=== PATIENT | male | born 1955 | race Caucasian/White ===

== ENCOUNTER 2016-07-19 05:54 | Day surgery (SDC) | payer OTHER ==
[~2016-07-19] VITALS: Ht 185.4 cm; Wt 85.2 kg
[2016-07-19] MEDS ORDERED: NORVASC 5MG5 MG/TAB PO (06:19)
[2016-07-19] MEDS ORDERED: MULTIPLE VITAMI1 CAP PO (06:20)
[2016-07-19] MEDS ORDERED: LOTREL 5/10MG C1 CAP PO (06:22)
[2016-07-19] MEDS ORDERED: MELATONIN5 M1 SL (06:22)
[2016-07-19] MEDS ORDERED: NATURAL POTASS595 MG PO (06:23)
[2016-07-19 06:45] VITALS: BP 134/69; PULSE 79; TEMP 97.9
[2016-07-19] MEDS ORDERED: NORCO 325 MG-51 TAB PO (09:59)
[2016-07-19] MEDS ORDERED: AMOXICILLIN 8751 TAB PO (09:59)
[2016-07-19] MEDS ORDERED: ZOFRAN ODT4 MG PO (10:00)
[2016-07-19 10:30] VITALS: BP 127/70; PULSE 69; TEMP 98.1
[2016-07-19 10:45] VITALS: BP 128/72; PULSE 78
[2016-07-19 11:00] VITALS: BP 125/70; PULSE 66
[2016-07-19 11:15] VITALS: BP 111/66; PULSE 72
== END 2016-07-19 13:37 | disposition home or self-care (01) ==
LOC: SDCO 05:54
DX: K81.0 Acute cholecystitis (principal); I10 Essential (primary) hypertension; E78.5 Hyperlipidemia, unspecified
CPT/HCPCS: J0694; J1100; J1885; J2270; J2405; J2704; J2710; J3010; J7120; Q9967

== ENCOUNTER 2020-03-28 05:33 | Day surgery (SDC) | payer BC ==
[2020-03-28] VITALS (11 sets, daily range): BP systolic 131–166; BP diastolic 68–92; PULSE 72–98; TEMP 97.3–98.6
[~2020-03-28] VITALS: Ht 185.4 cm; Wt 89.1 kg
[~2020-03-28 05:33] MED LIST: AMOXICILLIN 8751 TAB PO; LOTREL 5/10MG C1 CAP PO; MELATONIN5 M1 SL; NATURAL POTASS595 MG PO; NORCO 325 MG-51 TAB PO; NORVASC 5MG5 MG/TAB PO; ONE-A-DAY ESSE1 EACH PO; ZOFRAN ODT4 MG PO
[2020-03-28] MEDS ORDERED: TYLENOL 500MG500 MG PO (05:59)
[2020-03-28] MEDS ORDERED: MOTRIN 200200 MG/TAB PO (05:59)
[2020-03-28] MEDS ORDERED: PYRIDIUM 100MG100 MG PO (07:25)
--- NOTE | 2020-03-28 09:55 | NUR ---
PATIENT ADMITED INTO ROOM 323 POST OP TURP. VICENTE TO DD WITH CBI INFUSING AT MOD RATE. URINE IS LIGHT PINK, NO CLOTS. PATIENT DENIES PAIN OR COMPLAINTS. NO C/O N/V. IV FLUIDS INFUSING VIA PUMP INTO IV. HEAD TO TOE ASSESSMENT WNL. SCD'S TO BLE. ORIENTED TO ROOM. CALL LIGHT IN REACH.
[2020-03-29 03:44] VITALS: BP 142/85; PULSE 73; TEMP 98.6
--- NOTE | 2020-03-29 05:34 | NUR ---
Patient has had an uneventful night. CBI has been running at a moderate rate throughout the night and urine is currently dark pink with no clots. Patient has no complained of any pain or discomfort tonight. Approx 10 ml of bloody urine did leak into the BSC when patient was straining to have a bowel movement. Urine leakage ceased once patient was back in bed. Will continue to monitor.
[2020-03-29 09:12] VITALS: BP 155/81; PULSE 81; TEMP 98.5
--- NOTE | 2020-03-29 09:30 | NUR ---
Patient resting in bed. Tolerated breakfast, Iv to Int. Young Cbi slowed. [place] tinged output. Patient looking forward to young removal and discharge home. we did discussed the prime & pull process. Will await the doctor to round.
[2020-03-29 11:04] VITALS: BP 154/85; PULSE 77; TEMP 98.2
--- NOTE | 2020-03-29 13:35 | NUR ---
Patient ready for discharge. has rounded & orders obtained. Patient tolerated young prime & pull, he voided a total of 700ml of pink urine without difficulty. Few clots noted. He denies burning, but does have frequency. He we reviewed all discharge paperwork. He verbalized understanding of diet & activity restrictions. He will have follow up appt on tuesday. Home meds list discussed & last dose taken. His taking him home with all belongings. He denies questions or concerns.
== END 2020-03-29 13:38 | disposition home or self-care (01) ==
LOC: SDCO 05:33 → SURG 09:55 → SDCO 03-29 13:38
DX: C67.6 Malignant neoplasm of ureteric orifice (principal); N43.41 Spermatocele of epididymis, single; N41.1 Chronic prostatitis; E78.5 Hyperlipidemia, unspecified; I10 Essential (primary) hypertension; G47.00 Insomnia, unspecified; E11.9 Type 2 diabetes mellitus without complications; Z90.49 Acquired absence of other specified parts of digestive tract; F17.210 Nicotine dependence, cigarettes, uncomplicated
CPT/HCPCS: OP; C1769; C2617; J0360; J1100; J1170; J1885; J2405; J2704; J3010; J3480; J7120; Q9967

== ENCOUNTER → 2020-04-29 | Outpatient (CLI) | payer BC ==
[~2020-04-29] MED LIST changes: +MOTRIN 200200 MG/TAB PO; +PYRIDIUM 100MG100 MG PO; +TYLENOL 500MG500 MG PO
== END ==
LOC: COL.VAS 13:14
DX: Z01.818 Encounter for other preprocedural examination (principal); C67.6 Malignant neoplasm of ureteric orifice; I08.1 Rheumatic disorders of both mitral and tricuspid valves; I77.819 Aortic ectasia, unspecified site

== ENCOUNTER 2020-05-02 05:31 | Day surgery (SDC) | payer BC ==
[~2020-05-02] VITALS: Ht 185.4 cm; Wt 92.4 kg
[2020-05-02 05:50] VITALS: BP 130/78; PULSE 83; TEMP 98.1
[2020-05-02 08:36] VITALS: BP 124/72; PULSE 82; TEMP 97.8
--- NOTE | 2020-05-02 08:36 | NUR ---
The patient arrived back to [place] 7 from the operating room at this time. The patient appears alert and oriented and denies any pain or nausea at this time. The patient requests to try some water at this time. Post operative vital signs were started at this time. Incision is without redness or edema and closed with surgical glue. Call light is within reach. Will continue to monitor the patient.
[2020-05-02] MEDS ORDERED: MOTRIN 600600 MG/TAB PO (08:41)
[2020-05-02] MEDS ORDERED: NORCO 325 MG-51 TAB PO (08:41)
[2020-05-02 08:51] VITALS: BP 139/83; PULSE 83
--- NOTE | 2020-05-02 08:51 | NUR ---
The patient appeared to tolerate the water well and requests more at this time. The patient's was notified that he is done with surgery and will be ready for discharge soon so she is going to drive here from [place].
--- NOTE | 2020-05-02 09:03 | NUR ---
Discharge instructions were reviewed with the patient at this time. He verbalized understanding and has no questions for the nurse at this time. The patient's IV to his right hand was removed and a pressure dressing was applied to the site. The nurse instructed the patient to get dressed and notify the staff when he is ready to be escorted out.
[2020-05-02 09:06] VITALS: BP 145/77; PULSE 74
--- NOTE | 2020-05-02 09:25 | NUR ---
The patient was escorted out via wheelchair to a private vehicle by DARLENE Barnes. The patient's belongings and discharge paperwork were sent with him. The patient's is present to drive him home.
== END 2020-05-02 09:25 | disposition home or self-care (01) ==
LOC: SDCO 05:31
DX: C68.8 Malignant neoplasm of overlapping sites of urinary organs (principal); E11.9 Type 2 diabetes mellitus without complications; I10 Essential (primary) hypertension; E78.5 Hyperlipidemia, unspecified; G47.00 Insomnia, unspecified; F17.210 Nicotine dependence, cigarettes, uncomplicated; Z90.49 Acquired absence of other specified parts of digestive tract; Z20.822 Contact with and (suspected) exposure to COVID-19; Z85.51 Personal history of malignant neoplasm of bladder
CPT/HCPCS: C1788; J0690; J1644; J2704; J3010; J7120

== ENCOUNTER 2020-07-04 09:33 | Inpatient (IN) | payer BC, MEDICARE ==
[~2020-07-04] VITALS: Ht 185.4 cm; Wt 90.0 kg
[~2020-07-04 09:33] MED LIST changes: +MOTRIN 600600 MG/TAB PO
[2020-07-29] VITALS (9 sets, daily range): BP systolic 113–154; BP diastolic 68–81; PULSE 67–94; TEMP 98–98.5
[2020-07-29] MEDS ORDERED: MAG-OX 400400 MG/TAB PO (06:34)
[2020-07-29] MEDS ORDERED: CLARITIN 1010 MG/TAB PO (06:35)
[2020-07-29] MEDS ORDERED: TYLENOL 325MG325 MG PO (06:35)
[2020-07-29 07:57] LABS: BASO # 0.1 (0.0-0.2); BASO % 1.2 % (0.0-2.0); EOS # 0.2 (0.0-0.7); EOS % 3.5 % (0-4.0); GRAN # 2.7 (1.4-6.5); GRAN % 53.1 % (42.2-75.2); HEMOGLOBIN 12.3 g/dl (13.5-18.0); LYMPH # 1.3 (1.2-3.4); LYMPH % 24.8 % (20.0-51.0); MEAN CELL VOLUME 112 fl (80.0-100.0); MEAN CORPUSCULAR HEMOGLOBIN 37 pg (27.0-31.0); MEAN CORPUSCULAR HGB CONC 34 g/dl (33.0-37.0); MEAN PLATELET VOLUME 9.9 fl (7.4-10.4); MONO # 0.9 (0.1-0.6); MONO % 17.2 % (1.7-9.3); PLATELET COUNT 211 K/mm3 (130-400); RED BLOOD COUNT 3.29 M/mm3 (4.20-5.60); REDCELL DISTRIBUTION WIDTH-CV 19.9 % (11.5-14.5)
[2020-07-29 07:59] LABS: CALCIUM 8.8 mg/dL (8.4-10.2); CREATININE, serum 0.58 (0.66-1.25); HEMATOCRIT 36.7 % (42.0-52.0); POTASSIUM 3.8 mmol/L (3.4-5.0)
--- NOTE | 2020-07-29 16:20 | NUR ---
Pt recently arrived to the floor from PACU. He is drowsy, but does wake easily. is present in the room. He does have complaints of pain, but states that he does not like to take any pain medication. Dressing to ABD is CDI. SURY drain to bulb suction with red drainage. abd output bag does have output as well as pt young bag. SCDs on bilaterally, SWIMMING POOL CLEANER for pain management. Pt is tolerating ice water, told him to only take sips
--- NOTE | 2020-07-29 18:30 | NUR ---
ABD drain to dependent drainage young bag. Bloody output noted. Pt is having some pain, but states he does not want to use the MARINE ENGINEER CPVEC. He is tolerating ice water at this time. Dr Donohue in to see patient. Will continue to monitor
--- NOTE | 2020-07-29 22:00 | NUR ---
Patient resting in bed. Drowsy, but wakes easily. Some complaints of pain but states it is tolerable and he does not want to push his button for pain medicine. Oxygen via simple facemask due to patient breathing through his mouth. Midline abdomen insicion clean, dry, and intact. 5 lap sites with bandaids clean, dry, and intact. Both foleys to dependent drainage with pink output. SURY drain to bulb suction with bloody output. Stents flushed with 3 ml each. VSS stable. PAtient tolerating sips of water. No other needs at this time. Call light in reach.
[2020-07-30 00:01] VITALS: BP 121/75; PULSE 75
[2020-07-30 04:13] VITALS: BP 125/77; PULSE 71; TEMP 97.5
--- NOTE | 2020-07-30 05:50 | NUR ---
Patient did not push the button for pain meds at all throughout the night. States his pain is tolerable and is taking scheduled tylenol. Foleys are having adequate output.
[2020-07-30 07:03] LABS: BASO % 0.1 % (0.0-2.0); GRAN # 11.7 (1.4-6.5); GRAN % 86.9 % (42.2-75.2); LYMPH # 0.6 (1.2-3.4); LYMPH % 4.8 % (20.0-51.0); MEAN CELL VOLUME 114 fl (80.0-100.0); MEAN CORPUSCULAR HGB CONC 33 g/dl (33.0-37.0); MEAN PLATELET VOLUME 9.8 fl (7.4-10.4); MONO % 7.8 % (1.7-9.3); PLATELET COUNT 157 K/mm3 (130-400); RED BLOOD COUNT 2.53 M/mm3 (4.20-5.60); REDCELL DISTRIBUTION WIDTH-CV 19.9 % (11.5-14.5)
[2020-07-30 07:05] LABS: HEMATOCRIT 28.9 % (42.0-52.0); HEMOGLOBIN 9.5 g/dl (13.5-18.0); MEAN CORPUSCULAR HEMOGLOBIN 38 pg (27.0-31.0)
[2020-07-30 07:16] LABS: CREATININE, serum 0.62 (0.66-1.25); POTASSIUM 4.1 mmol/L (3.4-5.0)
[2020-07-30 07:29] VITALS: BP 119/73; PULSE 74; TEMP 98.2
--- NOTE | 2020-07-30 08:00 | NUR ---
PATIENT IS ALERT AND ORIENTED X3. VSS. 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 NO COMPLAINTS OF N/V AT THIS TIME. SUPRAPUBIC CATHETER FLUSHED WITH 3ML OF NS IN EACH PORT. THERE IS A MODERATE AMOUNT OF RED TINGED URINE IN THE SUPRAPUBIC DEPENDENT DRAINAGE BAG. THERE IS ALSO AN INDWELLING CATHETER IN THE NEW NEOBLADDER THAT IS DRAINING A SMALL AMOUNT OF RED TINGED URINE THAT CONTAINS SEDEMENT. THE INCISION SITE IS CLEAN DRY AND INTACT. THERE IS A MIDLINE INCISION COVERED BY GAUZE AND HYPAFIX, WHICH IS ALSO CLEAN DRY AND INTACT. THERE ARE FIVE LAP SITES COVERED BY BANDAIDS THAT ARE CLEAN DRY AND INTACT. THERE IS A CLARK MARTINEZ DRAIN THAT IS COMPRESSED AND DRAINING 5-10ML OF BLOODY FLUID. THE PENIS IS HELD TO TENSION AND HAS A MCKENZIE KNOT. PATIENT IS ON 3.5L BY OXY MASK. MORNING MEDS ARE PASSED WITH SIPS OF WATER TO MAINTAIN THE DIET ORDER. HEAD TO TOE ASSESSSMENT COMPLETED. LUNG SOUNDS ARE CLEAR IN ALL LOBES. HEART SOUNDS REGULAR AND NORMAL. BOWEL SOUNDS ACTIVE IN ALL FOUR QUADRANTS. PULSES ARE READILY PALPABLE. PATIENT DENIES ANY PAIN OR TENDERNESS IN HIS CALVES. THERE IS NO REDNESS OR WARMTH IN THE CALVES. NO EDEMA OR PITTING NOTED. WILL CONTINUE TO MONITOR. BED LEFT IN THE LOWEST POSITION AND CALL LIGHT LEFT WITHIN REACH.
--- NOTE | 2020-07-30 08:00 | NUR ---
AGREE WITH [place] HEAD TO TOE ASSESSMENT, SEE CHARTING
--- NOTE | 2020-07-30 09:15 | NUR ---
SE met with the patient to discuss discharge plan. The patient lives in [place] with his , Kezia (ph#[phone]). He reports independence with ADLs and does not have any DME. The patient's PCP is Dr. Naseem Santos and he receives his medications from [facility] in . He reports no difficulties obtaining his meds. The patient's does not have a DPOA-HC, but he was interested in obtaining a form. SE provided. The patient plans to return home with his upon discharge. No additional needs at this time.
--- NOTE | 2020-07-30 10:00 | NUR ---
PATIENT ASSISTED WITH 1 ASSIST TO BEDSIDE CHAIR. PATIENT HAD SOME DISCOMFORT WITH MOVING BUT DENIED NEED TO USE MORPHINE CIGARETTE SELLER. PATIENT RESTING UP IN BEDSIDE CHAIR WITH CALL LIGHT IN REACH.
[2020-07-30 11:23] VITALS: BP 111/71; PULSE 83; TEMP 98.3
--- NOTE | 2020-07-30 13:15 | NUR ---
CALLED AND REPORTED SOME DRAINAGE TO MIDLINE DRESSING, SHADOWING MINIMAL AND MARKED. PATIENT C/O A LOT OF ABD PAIN AFTER GETTING BACK INTO BED. NURSING ENCOURAGED PATIENT TO USE COMMUNITY MENTAL HEALTH SOCIAL WORKER, DOSE TAKEN. ALSO GAVE SCHEDULED TYLENOL & NEURONTIN. PATIENT RESTING UP IN BED. FOLEYS X2 AND SURY EMPTIED, SEE CHARTING. AT BEDSIDE. WILL MONITOR.
--- NOTE | 2020-07-30 13:55 | NUR ---
Initial visit; Patient and his thanked Manager Land for coming in to visit and letting him know of the availability of spiritual care at our hospital. Patient was receptive to having Manager Land keep him in her prayers.
[2020-07-30 15:55] VITALS: BP 116/72; PULSE 76; TEMP 98.6
[2020-07-30 20:08] VITALS: BP 146/77; PULSE 76
--- NOTE | 2020-07-30 21:00 | NUR ---
PAtient resting in bed. He is having some pain but states it is being controlled with SENIOR UX DESIGNER pump and he is pressing his button when he needs to. Flushed stents with 3 mls each. Abdominal midline dressing has some drainage. Lap sites clean, dry, and intact. SCDs to bilateral lower extremities. No other needs at this time.
[2020-07-31] VITALS (9 sets, daily range): BP systolic 127–155; BP diastolic 79–90; PULSE 81–104; TEMP 97.4–99.3
--- NOTE | 2020-07-31 06:50 | NUR ---
Pt doing well at this time. Denies any needs at this time
[2020-07-31 08:26] LABS: MEAN CELL VOLUME 115 fl (80.0-100.0); MEAN CORPUSCULAR HGB CONC 33 g/dl (33.0-37.0); MEAN PLATELET VOLUME 9.9 fl (7.4-10.4); PLATELET COUNT 143 K/mm3 (130-400); RED BLOOD COUNT 2.46 M/mm3 (4.20-5.60); REDCELL DISTRIBUTION WIDTH-CV 19.9 % (11.5-14.5)
[2020-07-31 08:28] LABS: HEMATOCRIT 28.2 % (42.0-52.0); HEMOGLOBIN 9.2 g/dl (13.5-18.0); MEAN CORPUSCULAR HEMOGLOBIN 37 pg (27.0-31.0)
[2020-07-31 08:31] LABS: CALCIUM 8.5 mg/dL (8.4-10.2); CREATININE, serum 0.66 (0.66-1.25); POTASSIUM 3.9 mmol/L (3.4-5.0)
--- NOTE | 2020-07-31 09:00 | NUR ---
Pt doing well this morning. Small amount of shadowing on the lower part of his dressing, marked with pen from yesterday, so additional drainage. Stents flushed with 3cc NS. Dr Donohue to see patient, young and SP flushed by Dr Donohue. Pt tolerating liquids. Encouraged ambulation. No other needs, will continue to monitor
--- NOTE | 2020-07-31 10:46 | NUR ---
Pt currently sitting up in the chair. He did ambulate with 2 assist with [employer] students. He did well. Currently no pain complaints, stated it was worse when he was walking, but that it went down once he sat down. Pt just recently showed up, no needs verbalized, call light within reach, will continue to monitor
--- NOTE | 2020-07-31 13:42 | NUR ---
Pt doing well, reports minimal pain at rest. Tolerating clear liquids, denies any needs. Will continue to monitor
--- NOTE | 2020-07-31 20:00 | NUR ---
Patient reports he is exhausted and just wants to sleep. Bedtime pills with melatonin administered. Encouraged patient to use DETECTIVE BUREAU CHIEF button if needed. Abdominal dressings clean, dry, and intact, with one spot of drainage on the midline incision. Indwelling and suprapubic young draining to dependent drainage bags. SURY draining bloody output.
[2020-08-01 03:44] VITALS: BP 127/87; PULSE 98; TEMP 97.9
[2020-08-01 08:15] VITALS: BP 137/72; PULSE 93; TEMP 97.8
--- NOTE | 2020-08-01 08:59 | NUR ---
Patient up to chair, 2 assist. Gaitbelt & walker used. Dr. Donohue rounded. He removed stents & flushed suprapubic & young. Patient 2 assist up to the sink- he brushed his teeth. I did try to wean patiemt off O2, but he did fall below 90 percent fast. Patient back on 4 L to keep sats up. made aware. Dr. Marshall called consult. Raymundo in Radiology made aware of orders for 2 view. Carlie in PT made aware of consult. Patient now at bedside. rounded again and did see his sore on the bottom. Air matress applied to bed. Allyven foam placed to sore. Patient reports he may have slept on his call light. Young cares provided.Bandaids removed. New drain sponge & tegaderm applied. Patietn continues to use his IS well. Scds. Port with IVf and bearing grinder for pain managament, patietn using sparingly. Patient made NPO for , concerns of ileus due to nausea. Will closely monitor.
--- NOTE | 2020-08-01 09:19 | NUR ---
Follow-up visit; just stuck her head in 'Red's" room to see how he was doing and let him know he looks good and seems to be making headway toward getting well. He thanked for looking in on him, offering encouragement and God's blessings.
--- NOTE | 2020-08-01 10:39 | NUR ---
Patient reports acid. made aware protonix ordered. He has not had emesis at this time. Will closely monitor.
--- NOTE | 2020-08-01 11:47 | NUR ---
chest xray results made aware to not new orders
[2020-08-01 12:15] VITALS: BP 138/72; PULSE 95; TEMP 98.2
--- NOTE | 2020-08-01 15:30 | NUR ---
Patient up in chair. we ambulated halls and he did well. no dyspnea noted. He continues to use IS well. Was able to get patient off of O2. Sats stable at 93%. made aware. Patient FINANCIAL ASSISTANCE SPECIALIST DC. Patient wanting to avoid medications. Clear liquids provided, he was instructed to take it slowly. He denies any feelings of nausea. Scds refused at this time.
[2020-08-01 15:51] VITALS: BP 156/75; PULSE 98; TEMP 97.9
--- NOTE | 2020-08-01 16:53 | NUR ---
Patient resting soundly at this time
--- NOTE | 2020-08-01 19:13 | NUR ---
Patient resting in bed. Tolerating orange gatorade. Denies nausea. Patient given young & suprapubic young flushing education. He was able to demonstrate with instruction. Patient aware he will need to understand how to do this upon discharge. He is wanting his to be present with education as well. Bedside report to Aleida RN
[2020-08-01 19:16] VITALS: BP 133/72; PULSE 97; TEMP 97.6
--- NOTE | 2020-08-01 22:00 | NUR ---
PT IN BED, TAKES HS MED WITHOUT PROBLEM. HAS SURY DRAIN TO RT ABD, SUPRAPUBIC CATH TO LEFT ABD MIDLINE WITH DRY DRSG AND VICENTE TO BSD WITH SEDIMENT PRESENT. RT PORT FLUSHED EASILY. IS ALERT AND ORIENTED X4, O2 AT 1.5L/NC.
[2020-08-01 23:31] VITALS: BP 133/76; PULSE 79; TEMP 98.6
--- NOTE | 2020-08-02 00:30 | NUR ---
PT REPORTS PASSING GAS. HAS LEAKING SUPRAPUBIC SITE, DRSG CHANGED. HAS MEPILEX TO COCCYX. MATTRESS OVERLAY ON.
[2020-08-02 03:19] VITALS: BP 132/70; PULSE 95; TEMP 98.6
--- NOTE | 2020-08-02 06:00 | NUR ---
ASSISTED TO CHAIR AT BEDSIDE. ASKED FOR MATTRESS OVERLAY TO BE REMOVED D/T BACK PAIN. REMOVED AT THIS TIME.
[2020-08-02 06:01] LABS: BASO % 0.3 % (0.0-2.0); EOS # 0.3 (0.0-0.7); EOS % 3.8 % (0-4.0); GRAN # 5.2 (1.4-6.5); GRAN % 72.1 % (42.2-75.2); LYMPH # 0.8 (1.2-3.4); LYMPH % 11.4 % (20.0-51.0); MEAN CELL VOLUME 119 fl (80.0-100.0); MEAN CORPUSCULAR HGB CONC 32 g/dl (33.0-37.0); MEAN PLATELET VOLUME 9.9 fl (7.4-10.4); MONO # 0.9 (0.1-0.6); MONO % 12.1 % (1.7-9.3); PLATELET COUNT 166 K/mm3 (130-400); RED BLOOD COUNT 2.28 M/mm3 (4.20-5.60); REDCELL DISTRIBUTION WIDTH-CV 18.6 % (11.5-14.5)
[2020-08-02 06:05] LABS: HEMATOCRIT 27.1 % (42.0-52.0); HEMOGLOBIN 8.7 g/dl (13.5-18.0); MEAN CORPUSCULAR HEMOGLOBIN 38 pg (27.0-31.0)
[2020-08-02 06:15] LABS: CALCIUM 8.2 mg/dL (8.4-10.2); CREATININE, serum 0.56 (0.66-1.25); POTASSIUM 3.7 mmol/L (3.4-5.0)
[2020-08-02 07:52] VITALS: BP 141/80; PULSE 81; TEMP 98.3
--- NOTE | 2020-08-02 08:00 | NUR ---
PATIENT ALERT & ORIENTED. VITAL SIGNS STABLE. PATIENT DENIES PAIN. PATIENT ADMITTED FOR A NEOBLADDER DUE TO BLADDER CANCER. INDWELLING VICENTE WITH PINK URINE AND SMALL TISSUE CLOTS. SUPRPUBIC CATHETER DRAINING YELLOW URINE WITH INTACT DRESSING AND MODERATE DRAINAGE. SURY DRAIN IN RIGHT ABDOMEN SET TO COMPRESSION WITH SMALL AMOUNT BLOODY DRAINAGE. NOTED ABDOMINAL DRESSINGS WITH DRAINAGE. APPLIED DRAIN GAUZE & HIPAFIX TO SURY AND SUPRPUBIC SITES. AIR STRIP APPLIED TO MIDLINE INCISION. PATIENT SELF IRRIGATED WITH 30 ML INTO SUPRAPUBIC AND INDWELLING VICENTE'S. PATIENT TOLERATING CLEAR LIQUID DIET WITH NO COMPLAINTS OF N/V. BOWEL SOUNDS ACTIVE X4 QUADRANTS AND PATIENT STATES HE IS PASSING GAS. RIGHT PORTACATH TO INT WITH DRESSING CLEAN, DRY, & INTACT. COCCYX COVERED WITH MEPILEX DRESSING. ALL OTHER ASSESSMENTS WITHIN NORMAL LIMITS. PATIENT RESTING IN BED AND CALL LIGHT WITHIN REACH.
--- NOTE | 2020-08-02 10:45 | NUR ---
PATIENT AMBULATING IN HALLS WITH PT. PATIENT WALKED AROUND THE ENTIRE NURSES STATION X2. TOLERATED ACTIVITY WELL. NO C/O SOA. 02 SATS IN LOW 90'S ON 1.5L OXYGEN. SEE PT NOTES.
[2020-08-02 11:32] VITALS: BP 147/80; PULSE 90; TEMP 98
--- NOTE | 2020-08-02 14:18 | NUR ---
Patient may discharge Friday 08/04 dependent upon urology results and teaching.
[2020-08-02 15:50] VITALS: BP 143/81; PULSE 88; TEMP 98.4
[2020-08-02 18:57] LABS: FOLATE (FOLIC ACID) 5.4 ng/mL (7.0-31.4)
[2020-08-02 19:58] VITALS: BP 136/82; PULSE 102; TEMP 98.1
--- NOTE | 2020-08-02 21:15 | NUR ---
PT IN BED. TAKES HS MED WITHOUT PROBLEM. PT DOES CLAMPING AND FLUSHING OF VICENTE AND SUPRAPUBIC EFFICIENTLY. VICENTE WITH YELLOW URINE AND MINIMAL SEDIMENT. SUPRAPUBIC WITH MINIMAL YELLOW. EMPTIED 20CC OF SEROSANGUINOUS DRAINAGE FROM SURY. DRESSING TO RIGHT BUTTOCK SHEAR REPLACED. DRSG TO LEFT SUPRAPUBIC CHANGED D/T LEAKAGE. RT PORTACATH FLUSHES EASILY. PT DENIES NEED FOR PAIN MEDS AT THIS TIME.
[2020-08-03 00:06] VITALS: BP 149/89; PULSE 106; TEMP 98.9
--- NOTE | 2020-08-03 04:00 | NUR ---
PT HAS HAD SEVERAL STOOLS THIS SHIFT. DENIES NEED FOR PAIN MEDS STRONGER THAN ES TYLENOL.
[2020-08-03 04:08] VITALS: BP 130/80; PULSE 91; TEMP 98
--- NOTE | 2020-08-03 05:59 | NUR ---
Reports total of 6 loose bowel movements this shift. Lab work drawn from port. Denies needs.
[2020-08-03 06:01] LABS: MEAN CORPUSCULAR HGB CONC 33 g/dl (33.0-37.0); MEAN PLATELET VOLUME 9.3 fl (7.4-10.4); PLATELET COUNT 198 K/mm3 (130-400); RED BLOOD COUNT 2.49 M/mm3 (4.20-5.60); REDCELL DISTRIBUTION WIDTH-CV 17.9 % (11.5-14.5)
[2020-08-03 06:06] LABS: HEMATOCRIT 28.3 % (42.0-52.0); HEMOGLOBIN 9.2 g/dl (13.5-18.0); MEAN CELL VOLUME 114 fl (80.0-100.0); MEAN CORPUSCULAR HEMOGLOBIN 37 pg (27.0-31.0)
[2020-08-03 06:08] LABS: CALCIUM 8.3 mg/dL (8.4-10.2); CREATININE, serum 0.63 (0.66-1.25); POTASSIUM 3.5 mmol/L (3.4-5.0)
[2020-08-03 06:49] LABS: EOSINOPHIL 1 % (0-4); LYMPHOCYTE 15 % (20.0-51.0); NEUTROPHILS 76 % (42.0-75.2)
[2020-08-03 06:50] LABS: ANISOCYTOSIS 1+; PLATELET ESTIMATE NORMAL (NORMAL)
--- NOTE | 2020-08-03 08:00 | NUR ---
AGREE WITH CAPSTONE ASSESSMENT, SEE CHARTING
[2020-08-03 08:07] VITALS: BP 140/87; PULSE 93; TEMP 98.2
--- NOTE | 2020-08-03 08:20 | NUR ---
PATIENT ALERT AND ORIENTED X3. VSS. NO COMPLAINTS OF PAIN OR N/V AT THIS TIME. MORNING MEDS ADMINISTERED. SUPRAPUBIC CATHETER AND INDWELLING CATHETER FLUSHED BY PATIEND WITH 30ML OF NS FOR TEACHING PURPOSES. URINE IS PALE YELLOW, CLEAR WITH SMALL AMOUNT OF SEDIMENT. SMALL AMOUNT OF BLOODY DRAINAGE IN CLARK MARTINEZ DRAIN, NOT EMPTIED AT THIS TIME. LAP SITE INCISIONS (X5) ARE CLEAN AND INTACT WITH TRAVIS AND OPEN TO AIR. MIDLINE INCISION IS CLEAN, DRY AND INTACT AND COVERED WITH GUAZE AND HYPAFIX. HEAD TO TOE ASSESSMENT COMPLETED. LUNG SOUNDS ARE CLEAR IN ALL LOBES. HEART IS REGULAR AND NORMAL. BOWEL SOUNDS ARE AUDIBLE IN ALL FOUR QUADRANTS. PATIENT REPORTS SEVERAL BM'S LAST NIGHT. PULSES ARE READILY PALPABLE BILATERALLY IN THE RADIAL AND PEDAL LOCATIONS. IN THE POST TIBIAL LOCATIONS THE PULSES ARE FAINT BUT FOUND. NO OTHER NEEDS. CALL LIGHT IN REACH.
[2020-08-03 11:50] VITALS: BP 134/77; PULSE 94; TEMP 97.5
[2020-08-03 15:07] VITALS: BP 115/70; PULSE 72; TEMP 97.8
[2020-08-03 19:12] VITALS: BP 133/77; PULSE 85; TEMP 97.9
[2020-08-04 00:14] VITALS: BP 142/70; PULSE 83; TEMP 97.8
[2020-08-04 04:24] VITALS: BP 143/76; PULSE 73; TEMP 98.2
--- NOTE | 2020-08-04 06:09 | NUR ---
PATIENT REPPORTS GOOD PAIN CONTROL.DUE MEDS GIVEN.NO OTHER NEEDS AT THIS TIME.
[2020-08-04] MEDS ORDERED: NORCO 325 MG-51 TAB PO (07:31)
[2020-08-04] MEDS ORDERED: COLACE 100100 MG/CAP PO (07:31)
[2020-08-04 07:49] VITALS: BP 149/83; PULSE 93; TEMP 97.5
--- NOTE | 2020-08-04 08:30 | NUR ---
PATIENT ALERT AND ORIENTED X3. VSS. NO COMPLAINTS OF PAIN OR N/V AT THIS TIME. EVERY OTHER SUTURE WAS REMOVED AND STERISTRIPS APPLIED ORDERED. NO DIHISCENCE OR DRAINAGE NOTED IN THE MIDLINE OR LAPSITE LOCATIONS. DRESSINGS REMOVED FROM SURY DRAIN AND SUPRAPUBIC CATHETER INCISION SITES AND REPLACED. BOTH SITES CONTAINED SEROSANGUINEOUS DRAINAGE. PATIENT RETURN DEMONSTRATED INDWELLING AND SUPRAPUBIC VICENTE CATHETER FLUSHES WITH 30ML OF STERILE WATER AND A VICENTE PLUG INSTEAD OF A CHEST TUBE CLAMP. URINE IS TEA COLORED WITH SEDEMENT PRESENT, 250ML COLLECTED FROM INDWELLING VICENTE BAG. PATIENT REQUESTED TO HAVE SHORTER BAGS FOR AT HOME THEREFORE LEG BAGS WERE APPLIED. ELLEN CARE WAS PERFORMED AND BRIEF CHANGED. SURY DRAIN EMPTIED AND LEFT OFF OF COMPRESSION ORDERED. DRAINAGE IS REDDISH AND AROUND 20ML. HEAD TO TOE ASSESSMENT COMPLETED. LUNG SOUNDS ARE CLEAR IN ALL LOBES. HEART IS NORMAL AND REGULAR. BOWEL SOUNDS ARE ACTIVE IN ALL FOUR QUADRANTS. ABDOMEN IS SOFT. PATIENT STATES THAT HIS BOWEL MOVEMENTS ARE STILL WATERY BUT BEGINNING TO BECOME MORE FORMED. PATIENT DENIES ANY PAIN OR TENDERNESS IN CALVES. THERE IS NO EDEMA, REDNESS OR ABNORMAL WARMTH IN THE CALVES. PULSES ARE WEAK IN THE LOWER EXTREMITIES BUT READILY PALPABLE IN THE RADIAL LOCATIONS. WILL CONTINUE TO MONITOR. PATIENT BED IS LEFT IN THE LOWEST POSITION AND CALL LIGHT LEFT WITHIN REACH.
--- NOTE | 2020-08-04 09:44 | NUR ---
Agree with student nurse Edyta assessement & note.
--- NOTE | 2020-08-04 10:27 | NUR ---
Follow-up; Patient and Offset Printing Operator had a nice visit as he was doing his morning walk in the [place], preparing to be discharged soon. Patient states that of all the hospitals he has been in he has had wonderful care at our hospital. He states that everyone does a remarkable job caring for their patients. Offset Printing Operator thanked him for letting us know.
[2020-08-04 11:48] VITALS: BP 130/79; PULSE 89; TEMP 97.8
--- NOTE | 2020-08-04 16:00 | NUR ---
Patient ready for discharge. Able to collect Sury creatine this afternoon per orders. Lab results of 1.[address] Bah, orders to remove drain obtained. I did also ask about all the questions his had & I reviewed with her. I also informed him I only removed every other abdominal staple on midline and I removed all lap site dodie. I was concerned about distal part of incisions not being ready for staple removal. Steri strips applied where dodie were removed. Patient tolerated SURY drain the removal well. Port deaccessed. Flushed & heparinized. Patient able to again demonstrate suprapubic & penis young flushing & clampimg properly. Steriwater & new flushing supplies sent with patient. Dressing change supplies for around suprapubic sent with patient I reviewed Sury drain site dressing change for 24 hours after removal. Foleys to leg bag per his request. He was concered his dogs would get tangled up in bags. He likes the "freedom" of the legs bags. Extensive young care education given, importance of hygiene/cleanliness stressed. Scripts at [facility] reviewed, medication safety discussed. Patient follow up appt for reviewed, urology office to call for cystogram time next week. Patient wheeled out with all belongigns & supplies. Denies questions or concerns, thankful to be getting home. His taking him home.
== END 2020-08-04 16:15 | disposition home or self-care (01) | DRG 653 ==
LOC: INPTSU 07-29 05:51 → SURG 07-29 07:30
PROVIDERS: Hospitalist; Student in an Organized Health Care Education/Training Program; ADMIT Urology
PROC: 0T1 Urinary System, Bypass (ICD-10-PCS; 2020-07-29)
PROC: 07BC0ZZ Excision of Pelvis Lymphatic, Open Approach (ICD-10-PCS; 2020-07-29)
PROC: 8E0W4CZ Robotic Assisted Procedure of Trunk Region, Percutaneous Endoscopic Approach (ICD-10-PCS; 2020-07-29)
PROC: 0TR Urinary System, Replacement (ICD-10-PCS; principal; 2020-07-29 07:30)
DX: C67.9 Malignant neoplasm of bladder, unspecified (principal); J96.01 Acute respiratory failure with hypoxia; D53.9 Nutritional anemia, unspecified; R91.1 Solitary pulmonary nodule; I10 Essential (primary) hypertension; E11.9 Type 2 diabetes mellitus without complications; G51.0 Bell's palsy; M24.551 Contracture, right hip; Z20.822 Contact with and (suspected) exposure to COVID-19; R11.10 Vomiting, unspecified; E78.5 Hyperlipidemia, unspecified; Z53.31 Laparoscopic surgical procedure converted to open procedure
CPT/HCPCS: 99223; 99231-AI; 99232-AI; A4314; A9284; C1729; C2617; C9113; J0690; J1100; J1644; J1650; J2250; J2270; J2405; J2704; J2710; J2795; J3010; J7120

== ENCOUNTER 2020-08-12 11:42 | Outpatient (CLI) | payer BC ==
[~2020-08-12] VITALS: Ht 185.4 cm; Wt 90.9 kg
[~2020-08-12 11:42] MED LIST changes: +CLARITIN 1010 MG/TAB PO; +COLACE 100100 MG/CAP PO; +MAG-OX 400400 MG/TAB PO; +TYLENOL 325MG325 MG PO
[2020-08-12] MEDS ORDERED: CIPRO 250MG TA250 MG PO (14:09)
--- NOTE | 2020-08-12 15:32 | NUR ---
PT ARRIVED TO MEDICAL FLOOR VERY UPSET REGARDING SITTING IN THE WAITING ROOM FOR 2.5 HOURS. THE PATIENT WAS TOLD TO BE HERE AT NOON, AND THAT THE CYSTOGRAM WOULD BE AT 1330. THE PATIENT ARRIVED, AND SAT IN RADIOLOGY WAITING UNTIL 1420 WHEN DARLENE DUONGSUPERVISOR INSTANT POTATO PROCESSING BROUGHT THE PATIENT UP TO ROOM 351. THE PATIENT'S PORT A CATH WAS ACCESSED WITH A 0.75IN LOCKETT NEEDLE, IT FLUSHED, AND WAS COVERED WITH TEGADERM. THE PATIENT AND HIS ARE VERY UPSET ABOUT THEIR SITUATION. DR. CALLE HAS CALLED, AND THIS RN TOLD HIM THAT THE FAMILY WOULD LIKE TO TALK TO HIM REGARDING THE PLAN. THE CYSTOGRAM HAS BEEN COMPLETED AND THE PATIENT HAS ORDERED FOOD. WE BROUGHT THE PATIENT COFFEE, AND THE MIGUE SOME WATER. THERE ARE NO OTHER CONERNS AT THIS TIME. WILL CONTINUE TO MONITOR AND ASSIST IN ANY WAY WE CAN. CALL LIGHT IS WITHIN REACH.
[2020-08-12 15:58] VITALS: BP 113/68; PULSE 82; TEMP 97.7
--- NOTE | 2020-08-12 16:44 | NUR ---
DR. CALLE IS AT BEDSIDE, STATES PT WILL DISCHARGE AT THIS TIME.
== END 2020-08-12 17:41 | disposition home or self-care (01) ==
LOC: COL.RAD 11:42 → MEDICAL 13:00 → COL.RAD 14:00
DX: C67.2 Malignant neoplasm of lateral wall of bladder (principal); E11.9 Type 2 diabetes mellitus without complications; I10 Essential (primary) hypertension; Z90.49 Acquired absence of other specified parts of digestive tract; Z90.6 Acquired absence of other parts of urinary tract; Z87.891 Personal history of nicotine dependence
CPT/HCPCS: OP; J0696; Q9967

== ENCOUNTER 2020-08-20 09:05 | Observation (INO) | payer BC ==
[~2020-08-20] VITALS: Ht 185.4 cm; Wt 82.0 kg
[~2020-08-20 09:05] MED LIST changes: +CIPRO 250MG TA250 MG PO
--- NOTE | 2020-08-20 09:15 | NUR ---
Patient arrived via wheelchair with spouse to room 350. Alert and oriented. Previous insicion sites with steristrips intact. suprapubic catheter with clear yellow urine noted, Young to DD with clear yellow urine. Leg bag changed to young back. Patient denies pain at this time. Denies further needs at this time.
[2020-08-20] MEDS ORDERED: NEXIUM 40MG40 MG PO (09:47)
[2020-08-20] MEDS ORDERED: REGLAN 10MG10 MG/TAB PO (09:47)
[2020-08-20 09:54] VITALS: BP 109/54; PULSE 62; TEMP 97.4
[2020-08-20 10:53] LABS: CREATININE, serum 3.05 (0.66-1.25)
[2020-08-20 11:47] VITALS: BP 103/59; PULSE 59; TEMP 97.7
--- NOTE | 2020-08-20 12:03 | NUR ---
Dr. Castle contacted for consult.
[2020-08-20 12:22] LABS: BASO % 0.4 % (0.0-2.0); EOS # 0.1 (0.0-0.7); EOS % 0.9 % (0-4.0); GRAN # 7.1 (1.4-6.5); GRAN % 76.7 % (42.2-75.2); HEMOGLOBIN 10.2 g/dl (13.5-18.0); LYMPH # 1.1 (1.2-3.4); LYMPH % 11.4 % (20.0-51.0); MEAN CELL VOLUME 113 fl (80.0-100.0); MEAN CORPUSCULAR HEMOGLOBIN 36 pg (27.0-31.0); MEAN CORPUSCULAR HGB CONC 32 g/dl (33.0-37.0); MEAN PLATELET VOLUME 10.1 fl (7.4-10.4); MONO # 0.9 (0.1-0.6); MONO % 10.1 % (1.7-9.3); PLATELET COUNT 310 K/mm3 (130-400); RED BLOOD COUNT 2.85 M/mm3 (4.20-5.60)
[2020-08-20 12:25] LABS: HEMATOCRIT 32.3 % (42.0-52.0)
--- NOTE | 2020-08-20 12:39 | NUR ---
Dr. Castle in to see patient.
[2020-08-20 12:51] LABS: ALANINE AMINOTRANSFERASE 8 U/L (4-49); ALBUMIN 3.9 gm/dL (3.5-5.0); ALKALINE PHOSPHATASE 53 U/L (50-136); AST,SGOT 22 U/L (15-37); BILIRUBIN,TOTAL 0.1 mg/dL (0.0-1.0); BLOOD UREA NITROGEN 111 mg/dL (9-20); CALCIUM 10.3 mg/dL (8.4-10.2); CHLORIDE 114 mmol/L (98-107); CREATININE, serum 2.97 (0.66-1.25); GLUCOSE 119 mg/dL (74-106); SODIUM 128 mmol/L (137-145)
[2020-08-20 12:54] LABS: POTASSIUM 7.2 mmol/L (3.4-5.0)
[2020-08-20 12:55] LABS: CARBON DIOXIDE < 5 mmol/L (22-30)
--- NOTE | 2020-08-20 13:30 | NUR ---
Contacted Dr. Donohue about abnormal labs. New order for calcium gluconate entered.
--- NOTE | 2020-08-20 13:40 | NUR ---
Contacted Dr. Castle about abnormal labs, verified administration of calcium gluconate in addition to kayexalate, amp of D50 and sodium bicarb.
[2020-08-20 15:31] VITALS: BP 110/54; PULSE 69; TEMP 97.7
--- NOTE | 2020-08-20 15:50 | NUR ---
Dr. Donohue in to see patient.
[2020-08-20 17:14] LABS: ALBUMIN 3.7 gm/dL (3.5-5.0); BLOOD UREA NITROGEN 108 mg/dL (9-20); CHLORIDE 117 mmol/L (98-107); CREATININE, serum 2.86 (0.66-1.25); GLUCOSE 86 mg/dL (74-106); PHOSPHOROUS 5.1 mg/dL (2.5-4.5); SODIUM 131 mmol/L (137-145)
[2020-08-20 17:18] LABS: POTASSIUM 6.3 mmol/L (3.4-5.0)
[2020-08-20 17:19] LABS: CARBON DIOXIDE < 5 mmol/L (22-30)
--- NOTE | 2020-08-20 17:33 | NUR ---
Contacted Dr. Castel about critical lab values, new order of kayexalate entered.
--- NOTE | 2020-08-20 19:06 | NUR ---
Patient doing well this afternoon, up to restroom with x1 assist. Denies pain or further needs at this time. Reported off to assistant shift supervisor.
--- NOTE | 2020-08-20 20:00 | NUR ---
PAtient up to bathroom multiple times with loose stools. Patient is weak and short of breath when getting up.
[2020-08-20 20:28] VITALS: BP 90/54; PULSE 86; TEMP 97.6
--- NOTE | 2020-08-20 20:30 | NUR ---
Dr. Castle called and said to encourage fluid intake. Gave patient water and educated him on drinking lots of fluids.
--- NOTE | 2020-08-20 21:00 | NUR ---
Patient continuing to have loose stools. Patient is attempting to get up by himself, after being reminded to call for help first. Patient having periods of time where he is not completely oriented. Bed alarm on.
--- NOTE | 2020-08-20 21:30 | NUR ---
Patient moved to room 326 to be closer to the nurse's station. Patient's bed wheeled down to the room and all of his belongings were transferred with him. Bed alarm on and call light in reach.
--- NOTE | 2020-08-20 23:40 | NUR ---
Patient has drank 700 mls of fluid so far.
[2020-08-21 00:01] VITALS: BP 110/67; PULSE 86; TEMP 98
--- NOTE | 2020-08-21 01:06 | NUR ---
Patient has not had any urine output since around 1900. Called Dr. Conner and he said to irrigate catheters. Irrigated catheters and removed mucus from the indwelling and suprapubic catheter. Some urine is now flowing. Will continue to monitor.
[2020-08-21 03:31] VITALS: BP 115/86; PULSE 88; TEMP 97.4
[2020-08-21 06:41] LABS: BASO % 0.3 % (0.0-2.0); EOS # 0.2 (0.0-0.7); EOS % 2.2 % (0-4.0); GRAN # 6.5 (1.4-6.5); GRAN % 72.8 % (42.2-75.2); LYMPH # 1.3 (1.2-3.4); LYMPH % 14.5 % (20.0-51.0); MEAN CELL VOLUME 110 fl (80.0-100.0); MEAN CORPUSCULAR HGB CONC 33 g/dl (33.0-37.0); MEAN PLATELET VOLUME 9.9 fl (7.4-10.4); MONO # 0.9 (0.1-0.6); MONO % 9.8 % (1.7-9.3); PLATELET COUNT 260 K/mm3 (130-400); RED BLOOD COUNT 2.46 M/mm3 (4.20-5.60); REDCELL DISTRIBUTION WIDTH-CV 17.9 % (11.5-14.5)
[2020-08-21 06:48] LABS: HEMOGLOBIN 8.9 g/dl (13.5-18.0); MEAN CORPUSCULAR HEMOGLOBIN 36 pg (27.0-31.0)
[2020-08-21 07:08] LABS: ALBUMIN 3.5 gm/dL (3.5-5.0); BILIRUBIN,TOTAL 0.2 mg/dL (0.0-1.0); CALCIUM 9.4 mg/dL (8.4-10.2); CREATININE, serum 2.27 (0.66-1.25); TOTAL PROTEIN 7.3 gm/dL (6.4-8.2)
[2020-08-21 07:18] LABS: POTASSIUM 3.6 mmol/L (3.4-5.0)
[2020-08-21 07:25] VITALS: BP 115/66; PULSE 82; TEMP 98
--- NOTE | 2020-08-21 08:43 | NUR ---
Patient to CT by wheelchair
--- NOTE | 2020-08-21 09:00 | NUR ---
The patient discharged before the patient could complete intake.
--- NOTE | 2020-08-21 11:10 | NUR ---
Patient down for repeat CT.
[2020-08-21 11:26] VITALS: BP 113/66; PULSE 85; TEMP 98
--- NOTE | 2020-08-21 13:24 | NUR ---
Initial visit (this stay); Patient and his thanked Object Oriented Developer for offering a quiet prayer and God's blessings. Object Oriented Developer will keep "Red" in her prayers.
[2020-08-21 15:52] VITALS: BP 115/68; PULSE 82; TEMP 97.8
--- NOTE | 2020-08-21 17:06 | NUR ---
Dr. Donohue in to see patient.
--- NOTE | 2020-08-21 18:23 | NUR ---
Patient doing well throughout the day. Suprapubic site with gauze and tape dressing noted, CDI. Hicks to DD with clear yellow urine, mucus noted. Patient denies pain throughout the day. Fluids continue infusing per orders. Denies further needs at this time. Will report off to oil burner servicer and installer.
[2020-08-21 19:18] VITALS: BP 106/56; PULSE 77; TEMP 98.4
--- NOTE | 2020-08-21 21:00 | NUR ---
Patient resting in bed. States he is tired and ready for bed. Irrigated indwelling catheter and removed some mucus. Catheter is draining yellow urine into dependent drainage bag with some mucus noted. Fluids infusing per orders. Patient reports no pain at this time. Suprapubic site clean, dry, and intact. No additional needs at this time. Bed alarm is on.
[2020-08-22 00:01] VITALS: BP 122/63; PULSE 82; TEMP 98.1
[2020-08-22 03:47] VITALS: BP 131/73; PULSE 85; TEMP 97.3
--- NOTE | 2020-08-22 03:53 | NUR ---
Patient requested some tylenol for pain. Tylenol administered and warm blanket provided.
[2020-08-22 06:58] LABS: BILIRUBIN,TOTAL 0.1 mg/dL (0.0-1.0); CALCIUM 8.5 mg/dL (8.4-10.2); CREATININE, serum 1.54 (0.66-1.25); POTASSIUM 3.9 mmol/L (3.4-5.0); TOTAL PROTEIN 6.4 gm/dL (6.4-8.2)
[2020-08-22 06:59] LABS: BASO % 0.5 % (0.0-2.0); EOS # 0.2 (0.0-0.7); GRAN # 5.3 (1.4-6.5); GRAN % 68.7 % (42.2-75.2); LYMPH # 1.3 (1.2-3.4); MEAN CELL VOLUME 109 fl (80.0-100.0); MEAN CORPUSCULAR HGB CONC 34 g/dl (33.0-37.0); MEAN PLATELET VOLUME 10.2 fl (7.4-10.4); MONO # 0.8 (0.1-0.6); MONO % 10.5 % (1.7-9.3); PLATELET COUNT 201 K/mm3 (130-400); RED BLOOD COUNT 2.24 M/mm3 (4.20-5.60); REDCELL DISTRIBUTION WIDTH-CV 17.8 % (11.5-14.5)
[2020-08-22 07:01] LABS: HEMATOCRIT 24.5 % (42.0-52.0); HEMOGLOBIN 8.2 g/dl (13.5-18.0); MEAN CORPUSCULAR HEMOGLOBIN 37 pg (27.0-31.0)
--- NOTE | 2020-08-22 07:30 | NUR ---
PATIENT ALERT & ORIENTED X4. VITAL SIGNS STABLE. DENIES PAIN AT THIS TIME. TOLERATING RENAL DIET AND DENIES N/V. CENTRAL LINE RIGHT CHEST PORT RUNNING 1/2 NS @ 100 ML/HR WITH OCCLUSIVE DRESSING CLEAN, DRY, & INTACT. PATIENT ADMITTED FOR CYSTOGRAM. INDWELLING CATHETHER IN PLACE WITH YELLOW, HAZY URINE. MIDLINE INCISION EDGES WELL APPROXIMATED WITH OCCLUSIVE TAPE DRESSING. SUPRAPUBIC INCISION GAUZE DRESSING CLEAN, DRY, & INTACT. SHIFT ASSESSMENT WITHIN NORMAL LIMITS. TELE MONITOR NORMAL SINUS. PATIENT ASSIST X1 WITH WALKER. PATIENT WAITING FOR BREAKFAST TRAY TO ARRIVE. NO OTHER NEEDS AT THIS TIME. WILL CONTINUE TO MONITOR.
[2020-08-22 07:39] VITALS: BP 119/70; PULSE 79; TEMP 98.2
--- NOTE | 2020-08-22 09:50 | NUR ---
CATHETER & ELLEN CARE PROVIDED AND HAND IRRIGATION PERFORMED. PATIENT TOLERATED PROCEDURE WELL. WILL CONTINUE TO MONITOR.
--- NOTE | 2020-08-22 10:37 | NUR ---
*late entry 08/21* Metal Sprayer Protective Coating met with the patient to complete intake. The patient lives in [place] with his , Kezia. The patient denies DME use and is independent. The patient's PCP is Dr. Salmeron and patient receives medications from [facility] in [place]. The patient was following Dr. Lundy for treatment. The patient does not have advanced directives in the EMR. The patient plans to return home at discharge with Kezia provding transportation. PT/OT ordered. The patient is a readmission. The patient states he did have a follow up after last hospitalization and was taking his medications as prescribed. Metal Sprayer Protective Coating contacted Kezia to discuss the discharge plan. After reviewing the chart PT is recommending home with family support and home health. Lyly was agreeable to sending referral to [facility]. Referral sent. Lyly reports that the patient is no longer receiving treatment (chemo) from Dr. Lundy, the course was is finished. The patient is to follow up every [address] scans. *08/22 entry * Colleen from [facility] reports that the patient's insurance is not in-network with [facility]. SE faxed referral to Natalie at [facility]. She will check if they are in-network then inform this SW.
[2020-08-22 12:23] VITALS: BP 129/71; PULSE 81; TEMP 97.2
--- NOTE | 2020-08-22 13:04 | NUR ---
Follow-up visit; 'Red' feeling a lot better today and thanked Senior Technical Architect for looking in on him and continuing to offer prayer for him.
--- NOTE | 2020-08-22 15:17 | NUR ---
Natalie with [facility] report that the patient's insurance ([employer] of [place]) allows for home health services teresa with agencies who contract with [facility]. [facility] does contact with [facility], therefore; they can accept the patient for PT/Nursing services. SW collaborated the above information with the patient's nurse.
[2020-08-22 16:00] VITALS: BP 114/68; PULSE 80; TEMP 98
--- NOTE | 2020-08-22 16:00 | NUR ---
PATIENT INCONTINENT IN BED. PATIENT ASSISTED TO RESTROOM WITH 1X ASSIST AND WALKER/GAITBELT. PATIENT REPOSITIONED IN BED. PATIENT BRIEF AND UNDER PAD CHANGED. POTASSIUM CHLORIDE RUNNING VIA SINGLE LUMEN PORTACATH PER ORDERS. PATIENT DENIES OTHER NEEDS AT THIS TIME.
--- NOTE | 2020-08-22 19:46 | NUR ---
Awake, alert, oriented x 4, able to clearly define needs, assisted to bathroom passing gas, ambulates with walker, young in place- leaking around young- changed clothing and bed linens, uses call pritchard appropriately, telemetry in use running NSR, R chest port a cath w/o s/s of infection noted, tolerating IV abt w/o issue, will continue to monitor.
[2020-08-22 21:27] VITALS: BP 125/71; PULSE 80; TEMP 98.1
[2020-08-23 01:36] VITALS: BP 137/76; PULSE 81; TEMP 98.1
--- NOTE | 2020-08-23 02:20 | NUR ---
Pt midline incision with the steri strips was clean dry and intact. The incision were well approximated. Pt has no complains of pain and has his call light within reach and his bed is in lowest position. Pt young is draining yellow, a small amount of mucus was noticed in the tubing.
--- NOTE | 2020-08-23 03:20 | NUR ---
Pt called because he wanted to get up into the chair. Pt was assisted to the chair. He was a stand by x1 with a gait belt and his walker. Pt tolerated well. Pt has his call light within reach.
[2020-08-23 04:08] VITALS: BP 149/72; PULSE 76; TEMP 98
--- NOTE | 2020-08-23 04:30 | NUR ---
Pt called and the aide assisted him back to bed. Pt has no concerns at this time.
[2020-08-23 06:36] LABS: BASO % 0.8 % (0.0-2.0); EOS # 0.3 (0.0-0.7); EOS % 6.6 % (0-4.0); GRAN % 58.7 % (42.2-75.2); LYMPH # 1.2 (1.2-3.4); LYMPH % 23.2 % (20.0-51.0); MEAN CELL VOLUME 107 fl (80.0-100.0); MEAN CORPUSCULAR HGB CONC 32 g/dl (33.0-37.0); MEAN PLATELET VOLUME 10.1 fl (7.4-10.4); MONO # 0.5 (0.1-0.6); MONO % 10.5 % (1.7-9.3); PLATELET COUNT 193 K/mm3 (130-400); RED BLOOD COUNT 2.27 M/mm3 (4.20-5.60); REDCELL DISTRIBUTION WIDTH-CV 17.1 % (11.5-14.5)
[2020-08-23 06:39] LABS: HEMATOCRIT 24.3 % (42.0-52.0); HEMOGLOBIN 7.8 g/dl (13.5-18.0); MEAN CORPUSCULAR HEMOGLOBIN 34 pg (27.0-31.0)
[2020-08-23 06:48] LABS: ALANINE AMINOTRANSFERASE 7 U/L (4-49); ALBUMIN 2.9 gm/dL (3.5-5.0); ALKALINE PHOSPHATASE 38 U/L (50-136); ANION GAP 8 mmol/L (7-16); AST,SGOT 15 U/L (15-37); BILIRUBIN,TOTAL < 0.1 mg/dL (0.0-1.0); BLOOD UREA NITROGEN 44 mg/dL (9-20); CALCIUM 8.6 mg/dL (8.4-10.2); CHLORIDE 115 mmol/L (98-107); CREATININE, serum 1.21 (0.66-1.25); GLUCOSE 116 mg/dL (74-106); POTASSIUM 3.9 mmol/L (3.4-5.0); SODIUM 135 mmol/L (137-145); TOTAL PROTEIN 6.3 gm/dL (6.4-8.2)
[2020-08-23 06:51] LABS: CARBON DIOXIDE 13 mmol/L (22-30)
--- NOTE | 2020-08-23 07:00 | NUR ---
Pt resting in bed during bedside shift report. No complaints at this time. He stated that he is ready to go home. No leaking noted at catheter insertion site. Output with clear yellow urine
[2020-08-23 08:00] VITALS: BP 142/87; PULSE 75; TEMP 98.6
--- NOTE | 2020-08-23 09:06 | NUR ---
Dr Donohue in to see patient. Discussed options for catheter, decided to remove catheter and start self cathing. Pt has been up with PT walking in the halls. Incision well approximated with steristrips to midline and to lap sites. Pt does have straight caths in the room and reports that he has all supplies at home. he did verbalize that he was taught how to do it in the office and has no questions at this time
--- NOTE | 2020-08-23 09:50 | NUR ---
Hicks catheter irrigated and discontinued. Pt is to void on the hour and then self cath on the even hour. Pt did not eat much for breakfast. Encouraged him to try to eat some protein at each meal. Pt only had toast for breakfast. Professor Of Social Work in to see patient
--- NOTE | 2020-08-23 11:30 | NUR ---
Assisted pt to the restroom. His brief was wet. He was not able to void much, but did get some mucous out. Brief changed and assisted pt back to bed.
[2020-08-23 12:24] VITALS: BP 124/66; PULSE 73; TEMP 98.6
--- NOTE | 2020-08-23 14:20 | NUR ---
Pt assisted to the restroom again around 1330. Pt did have an incontinent void as his brief was wet. Pt back to bed around 1400. Pt appears tired.
--- NOTE | 2020-08-23 15:21 | NUR ---
Pt resting with eyes closed, even non labored breathing. Letting him rest through the 1500 void. Pt did straight cath himself around 1400. Approximately 10cc of output during straight cath.
[2020-08-23 15:43] VITALS: BP 125/71; PULSE 72; TEMP 98.2
--- NOTE | 2020-08-23 17:26 | NUR ---
Pt assisted to the bathroom. Unable to void, brief was saturated. He attempted to straight cath himself. Unable to advance catheter all the way and patient refused to reposition and try to advance further.
[2020-08-23 20:22] VITALS: BP 129/79; PULSE 80; TEMP 97.8
[2020-08-24 00:48] VITALS: BP 133/73; PULSE 68; TEMP 98.4
[2020-08-24 04:13] VITALS: BP 119/64; PULSE 78; TEMP 98.1
[2020-08-24 04:16] VITALS: BP 135/82; PULSE 70; TEMP 98.3
--- NOTE | 2020-08-24 05:05 | NUR ---
Patient has been voiding every hour and straight cathing every 2 hours throughout the shift. Patient has been incontinent of urine every time he goes to void. When straight cathing, patient gets about 10 mls of urine. Patient has found it is easier to cath himself when he is leaning back or laying.
[2020-08-24 06:57] LABS: BASO % 0.6 % (0.0-2.0); EOS # 0.4 (0.0-0.7); EOS % 7.8 % (0-4.0); GRAN # 2.5 (1.4-6.5); GRAN % 53.7 % (42.2-75.2); LYMPH # 1.3 (1.2-3.4); LYMPH % 26.5 % (20.0-51.0); MEAN CELL VOLUME 109 fl (80.0-100.0); MEAN CORPUSCULAR HGB CONC 34 g/dl (33.0-37.0); MEAN PLATELET VOLUME 9.8 fl (7.4-10.4); MONO # 0.5 (0.1-0.6); PLATELET COUNT 192 K/mm3 (130-400); RED BLOOD COUNT 2.09 M/mm3 (4.20-5.60); REDCELL DISTRIBUTION WIDTH-CV 17.1 % (11.5-14.5)
[2020-08-24 07:01] LABS: HEMATOCRIT 22.7 % (42.0-52.0); HEMOGLOBIN 7.6 g/dl (13.5-18.0); MEAN CORPUSCULAR HEMOGLOBIN 36 pg (27.0-31.0)
[2020-08-24 07:04] LABS: ALANINE AMINOTRANSFERASE 9 U/L (4-49); ALBUMIN 2.8 gm/dL (3.5-5.0); ALKALINE PHOSPHATASE 37 U/L (50-136); ANION GAP 6 mmol/L (7-16); AST,SGOT 32 U/L (15-37); BILIRUBIN,TOTAL < 0.1 mg/dL (0.0-1.0); BLOOD UREA NITROGEN 28 mg/dL (9-20); CALCIUM 8.4 mg/dL (8.4-10.2); CARBON DIOXIDE 15 mmol/L (22-30); CHLORIDE 116 mmol/L (98-107); CREATININE, serum 0.91 (0.66-1.25); GLUCOSE 122 mg/dL (74-106); POTASSIUM 4.1 mmol/L (3.4-5.0); SODIUM 137 mmol/L (137-145); TOTAL PROTEIN 6.1 gm/dL (6.4-8.2)
[2020-08-24 07:35] VITALS: BP 129/72; PULSE 67; TEMP 98.2
--- NOTE | 2020-08-24 08:13 | NUR ---
Pt resting in bed, he has had and ate about half of his breakfast consisting of some eggs. Pt has pain complaints with movement. Gauze removed from previous suprapubic site. Area does have minimal drainage and dime sized slough. New gauze applied to site. Pt stated he will shower when he gets home. Reports that he had an okay night. Was able to straight cath several times through the night. Pt states that he thinks he will get along better at home. No needs verbalized, will continue to monitor
--- NOTE | 2020-08-24 09:30 | NUR ---
Pt in much better spirits today. He has not been able to void much for me so far today. Brief is wet each time he gets up to the restroom. Did straight cath with minimal output. Pain complaints intermittently with movement. He has been up walking in the barraza with PT
--- NOTE | 2020-08-24 10:37 | NUR ---
Dr Donohue in to see patient, orders for discharge. Pt much more energetic, ready to go home. He has called his , awaiting arrival. Portacath removed. Informed pt to ring call light when she arrives
--- NOTE | 2020-08-24 11:13 | NUR ---
Reviewed discharge instructions with pt and his . Informed to call primary care tomorrow to set up appointment and that Dr Donohue would call later in the week to check on him. Discussed medication, port deaccessed and pt escorted out
--- NOTE | 2020-08-24 13:17 | NUR ---
SE update: SE faxed DC orders to [facility] for Home health.
--- NOTE | 2020-08-25 15:20 | NUR ---
The patient's , Kezia contacted this Registered Travel Nurse regarding home health. Kezia reports that the patient is doing better and does not need home health services at this time. Per Kezia, she spoke to Natalie with [facility] to inform them that they no longer needed home health services. SE contacted Natalie with [facility] to confirm the above information. Natalie reports that they are available if the patient and Kezia change thier mind. There are no additional needs at this time.
== END 2020-08-24 11:14 | disposition home or self-care (01) ==
LOC: SURG 09:05 → MEDICAL 14:27 → SURG 14:27
PROVIDERS: Internal Medicine Nephrology; ADMIT Urology
DX: N17.9 Acute kidney failure, unspecified (principal); C67.9 Malignant neoplasm of bladder, unspecified; R53.83 Other fatigue; R39.81 Functional urinary incontinence; I10 Essential (primary) hypertension; E87.5 Hyperkalemia; B39.9 Histoplasmosis, unspecified; E11.9 Type 2 diabetes mellitus without complications; E87.2 Acidosis; G51.0 Bell's palsy; D64.9 Anemia, unspecified; F17.210 Nicotine dependence, cigarettes, uncomplicated; Z79.899 Other long term (current) drug therapy; Z90.49 Acquired absence of other specified parts of digestive tract
CPT/HCPCS: G0378; G0379; J0610; J0696; J1815; J3480; J7030

== ENCOUNTER 2020-09-09 12:46 | Inpatient (IN) | payer MEDICARE, BC ==
[~2020-09-09] VITALS: Ht 185.4 cm; Wt 72.3 kg
[~2020-09-09 12:46] MED LIST changes: +NEXIUM 40MG40 MG PO; +REGLAN 10MG10 MG/TAB PO
[2020-09-09 13:28] LABS: BASO % 0.1 % (0.0-2.0); EOS % 0.1 % (0-4.0); GRAN # 7.3 (1.4-6.5); GRAN % 81.7 % (42.2-75.2); HEMOGLOBIN 11.6 g/dl (13.5-18.0); LYMPH % 10.6 % (20.0-51.0); MEAN CELL VOLUME 105 fl (80.0-100.0); MEAN CORPUSCULAR HEMOGLOBIN 34 pg (27.0-31.0); MEAN CORPUSCULAR HGB CONC 33 g/dl (33.0-37.0); MEAN PLATELET VOLUME 9.3 fl (7.4-10.4); MONO # 0.6 (0.1-0.6); MONO % 6.3 % (1.7-9.3); PLATELET COUNT 546 K/mm3 (130-400); REDCELL DISTRIBUTION WIDTH-CV 18.2 % (11.5-14.5)
[2020-09-09 13:32] LABS: HEMATOCRIT 35.6 % (42.0-52.0)
[2020-09-09 14:02] LABS: ALANINE AMINOTRANSFERASE 73 U/L (4-49); ALBUMIN 4.5 gm/dL (3.5-5.0); ALKALINE PHOSPHATASE 75 U/L (50-136); AST,SGOT 31 U/L (15-37); BILIRUBIN,TOTAL 0.2 mg/dL (0.0-1.0); CALCIUM 11.2 mg/dL (8.4-10.2); CHLORIDE 107 mmol/L (98-107); CREATININE, serum 4.41 (0.66-1.25); GLUCOSE 140 mg/dL (74-106); MAGNESIUM 3.1 mg/dL (1.6-2.3); SODIUM 127 mmol/L (137-145); TOTAL PROTEIN 9.7 gm/dL (6.4-8.2)
[2020-09-09 14:09] LABS: BLOOD UREA NITROGEN 139 mg/dL (9-20)
[2020-09-09 14:10] LABS: POTASSIUM 7.5 mmol/L (3.4-5.0)
[2020-09-09 14:11] LABS: CARBON DIOXIDE < 5 mmol/L (22-30)
[2020-09-09] MEDS ORDERED: NATURAL IRON65 MG PO (14:54)
[2020-09-09] MEDS ORDERED: REGLAN 10MG10 MG/TAB PO (14:54)
[2020-09-09 15:09] LABS: COLLECTION METHOD CLEAN CATCH
[2020-09-09 15:39] LABS: PH 7 (5-8); SQUAMOUS EPITHELIAL None Seen /hpf; URINE APPEARANCE Hazy; URINE BACTERIA None Seen /hpf; URINE BILIRUBIN Negative (NEGATIVE); URINE BLOOD 1+ (NEGATIVE); URINE COLOR Yellow; URINE GLUCOSE Negative (NEGATIVE); URINE KETONE Negative (NEGATIVE); URINE LEUKOCYTE ESTERASE 3+ (NEGATIVE); URINE NITRATE Negative (NEGATIVE); URINE PROTEIN(semi-quant) 1+ (NEGATIVE); URINE UROBILINOGEN Negative (NEGATIVE)
[2020-09-09 16:30] VITALS: BP 131/72; PULSE 94; TEMP 97.7
[2020-09-09 19:43] VITALS: BP 114/68; PULSE 81; TEMP 97.7
[2020-09-09 20:24] LABS: ALBUMIN 3.4 gm/dL (3.5-5.0); ANION GAP 12 mmol/L (7-16); CALCIUM 9.1 mg/dL (8.4-10.2); CHLORIDE 110 mmol/L (98-107); CREATININE, serum 3.13 (0.66-1.25); GLUCOSE 120 mg/dL (74-106); PHOSPHOROUS 5.9 mg/dL (2.5-4.5); POTASSIUM 4.4 mmol/L (3.4-5.0); SODIUM 134 mmol/L (137-145)
[2020-09-09 20:30] LABS: BLOOD UREA NITROGEN > 120 mg/dL (9-20)
[2020-09-09 20:32] LABS: CARBON DIOXIDE 13 mmol/L (22-30)
[2020-09-10] VITALS (7 sets, daily range): BP systolic 102–132; BP diastolic 56–75; PULSE 74–83; TEMP 97–98.2
[2020-09-10 07:03] LABS: BASO % 0.1 % (0.0-2.0); EOS # 0.1 (0.0-0.7); EOS % 1.5 % (0-4.0); GRAN % 69.1 % (42.2-75.2); LYMPH # 1.4 (1.2-3.4); MEAN CELL VOLUME 105 fl (80.0-100.0); MEAN CORPUSCULAR HGB CONC 32 g/dl (33.0-37.0); MEAN PLATELET VOLUME 9.4 fl (7.4-10.4); MONO # 0.6 (0.1-0.6); MONO % 8.2 % (1.7-9.3); RED BLOOD COUNT 2.49 M/mm3 (4.20-5.60); REDCELL DISTRIBUTION WIDTH-CV 18.7 % (11.5-14.5)
[2020-09-10 07:06] LABS: HEMATOCRIT 26.2 % (42.0-52.0); HEMOGLOBIN 8.5 g/dl (13.5-18.0); MEAN CORPUSCULAR HEMOGLOBIN 34 pg (27.0-31.0); PLATELET COUNT 422 K/mm3 (130-400)
[2020-09-10 07:13] LABS: ALBUMIN 3.2 gm/dL (3.5-5.0); CREATININE, serum 2.61 (0.66-1.25); PHOSPHOROUS 5.4 mg/dL (2.5-4.5); POTASSIUM 3.8 mmol/L (3.4-5.0)
[2020-09-11 04:02] VITALS: BP 117/68; PULSE 73; TEMP 98.2
[2020-09-11 06:42] LABS: BASO % 0.3 % (0.0-2.0); EOS # 0.2 (0.0-0.7); EOS % 2.4 % (0-4.0); GRAN # 4.8 (1.4-6.5); GRAN % 64.5 % (42.2-75.2); LYMPH # 1.7 (1.2-3.4); MEAN CELL VOLUME 106 fl (80.0-100.0); MEAN CORPUSCULAR HGB CONC 33 g/dl (33.0-37.0); MEAN PLATELET VOLUME 9.3 fl (7.4-10.4); MONO # 0.7 (0.1-0.6); MONO % 8.7 % (1.7-9.3); PLATELET COUNT 391 K/mm3 (130-400); RED BLOOD COUNT 2.43 M/mm3 (4.20-5.60); REDCELL DISTRIBUTION WIDTH-CV 18.6 % (11.5-14.5)
[2020-09-11 06:57] LABS: ALBUMIN 3.1 gm/dL (3.5-5.0); CALCIUM 8.9 mg/dL (8.4-10.2); CREATININE, serum 1.78 (0.66-1.25); HEMATOCRIT 25.8 % (42.0-52.0); HEMOGLOBIN 8.5 g/dl (13.5-18.0); MEAN CORPUSCULAR HEMOGLOBIN 35 pg (27.0-31.0); PHOSPHOROUS 4.3 mg/dL (2.5-4.5); POTASSIUM 4.2 mmol/L (3.4-5.0)
[2020-09-11 08:00] VITALS: BP 107/60; PULSE 73; TEMP 98.5
[2020-09-11 11:20] VITALS: BP 11/69; BP 111/69; PULSE 76; TEMP 98.1
[2020-09-11 16:07] VITALS: BP 110/55; PULSE 73; TEMP 97.7
[2020-09-11 19:38] VITALS: BP 105/64; PULSE 75; TEMP 98
[2020-09-11 23:21] VITALS: BP 105/61; PULSE 66; TEMP 98.2
[2020-09-12 04:00] VITALS: BP 106/51; PULSE 71; TEMP 98.6
[2020-09-12 06:28] LABS: BASO % 0.3 % (0.0-2.0); EOS # 0.1 (0.0-0.7); EOS % 1.9 % (0-4.0); GRAN # 4.3 (1.4-6.5); LYMPH # 1.4 (1.2-3.4); LYMPH % 21.4 % (20.0-51.0); MEAN CELL VOLUME 107 fl (80.0-100.0); MEAN CORPUSCULAR HGB CONC 32 g/dl (33.0-37.0); MEAN PLATELET VOLUME 9.4 fl (7.4-10.4); MONO # 0.6 (0.1-0.6); MONO % 9.3 % (1.7-9.3); PLATELET COUNT 389 K/mm3 (130-400); RED BLOOD COUNT 2.46 M/mm3 (4.20-5.60); REDCELL DISTRIBUTION WIDTH-CV 17.8 % (11.5-14.5)
[2020-09-12 06:32] LABS: HEMATOCRIT 26.3 % (42.0-52.0); HEMOGLOBIN 8.3 g/dl (13.5-18.0); MEAN CORPUSCULAR HEMOGLOBIN 34 pg (27.0-31.0)
[2020-09-12 06:38] LABS: ALBUMIN 3.1 gm/dL (3.5-5.0); CALCIUM 8.4 mg/dL (8.4-10.2); CREATININE, serum 1.35 (0.66-1.25); PHOSPHOROUS 2.6 mg/dL (2.5-4.5); POTASSIUM 3.7 mmol/L (3.4-5.0)
[2020-09-12] MEDS ORDERED: REGLAN 10MG10 MG/TAB PO (07:05)
[2020-09-12] MEDS ORDERED: NEXIUM 40MG40 MG PO (07:05)
[2020-09-12 07:37] VITALS: BP 109/64; PULSE 72; TEMP 98.4
== END 2020-09-12 09:30 | disposition home or self-care (01) | DRG 682 ==
LOC: COL.ER 12:46 → SURG 13:37
PROVIDERS: Family Medicine; ADMIT Urology
DX: N17.9 Acute kidney failure, unspecified (principal); E43 Unspecified severe protein-calorie malnutrition; Z68.1 Body mass index [BMI] 19.9 or less, adult; E87.1 Hypo-osmolality and hyponatremia; E87.2 Acidosis; E87.5 Hyperkalemia; Z90.49 Acquired absence of other specified parts of digestive tract; R06.6 Hiccough; E86.0 Dehydration; D64.9 Anemia, unspecified; C67.9 Malignant neoplasm of bladder, unspecified
CPT/HCPCS: A4314; J1650; J1815; J2405; J2550; J7030; J7070; J7120

== ENCOUNTER 2020-11-25 13:14 | Inpatient (IN) | payer MEDICARE, BC ==
[2020-11-25] VITALS (152 sets, daily range): BP systolic 124–130; BP diastolic 77–83; PULSE 79–96; TEMP 98.8–99; O2SAT 95–100
[~2020-11-25] VITALS: Ht 185.4 cm; Wt 88.9 kg
[~2020-11-25 13:14] MED LIST changes: +NATURAL IRON65 MG PO
[2020-11-25 14:38] LABS: HEMOGLOBIN 11.6 g/dl (13.5-18.0); MEAN CELL VOLUME 92 fl (80.0-100.0); MEAN CORPUSCULAR HEMOGLOBIN 32 pg (27.0-31.0); MEAN CORPUSCULAR HGB CONC 35 g/dl (33.0-37.0); PLATELET COUNT 325 K/mm3 (130-400); RED BLOOD COUNT 3.61 M/mm3 (4.20-5.60); REDCELL DISTRIBUTION WIDTH-CV 16.4 % (11.5-14.5)
[2020-11-25 14:40] LABS: HEMATOCRIT 33.2 % (42.0-52.0)
[2020-11-25 14:50] LABS: ALBUMIN 4.2 gm/dL (3.5-5.0); BILIRUBIN,TOTAL 0.6 mg/dL (0.0-1.0); CALCIUM 8.8 mg/dL (8.4-10.2); CREATININE, serum 1.1 (0.66-1.25); POTASSIUM 5.3 mmol/L (3.4-5.0); TOTAL PROTEIN 8.1 gm/dL (6.4-8.2)
[2020-11-25 15:13] LABS: LYMPHOCYTE 27 % (20.0-51.0); NEUTROPHILS 66 % (42.0-75.2)
[2020-11-25 15:15] LABS: ANISOCYTOSIS 1+; PLATELET ESTIMATE NORMAL (NORMAL)
[2020-11-25] MEDS ORDERED: CLARITIN 1010 MG/TAB (16:23)
[2020-11-25 18:30] LABS: CALCIUM 8.6 mg/dL (8.4-10.2); CREATININE, serum 1.08 (0.66-1.25); POTASSIUM 4.6 mmol/L (3.4-5.0)
--- NOTE | 2020-11-25 19:13 | NUR ---
Pt report given to DARLENE Swartz.
--- NOTE | 2020-11-25 21:30 | NUR ---
Patient resting quietly in bed. Denies any pain or discomfort. All vitals within normal limits. NS infusing at 125mL/hr to a 20G RAC peripheral IV. Patient has external male catheter draining clear yellow urine. Patient's spouse, Daily, updated. No further needs noted.
[2020-11-25 22:36] LABS: CREATININE, serum 1.05 (0.66-1.25); POTASSIUM 4.7 mmol/L (3.4-5.0)
--- NOTE | 2020-11-25 23:57 | NUR ---
Transferred to the Floor around 2345. Patient is alert and oriented. Gets stanby very pleasant. He is with external young draining yellow and clear. He denies pain or SOB. He complains of being weak. He tranferred from ICU via wheelchair. He has bruises in his bilateral arms otherwise skin is intact. No complains noted and he just wanted to sleep. Call light given and within reach.
[2020-11-26 01:54] LABS: CREATININE, serum 1.05 (0.66-1.25); POTASSIUM 4.7 mmol/L (3.4-5.0)
[2020-11-26 04:29] VITALS: BP 145/82; PULSE 91; TEMP 97.5
[2020-11-26 07:12] LABS: HEMOGLOBIN 11.3 g/dl (13.5-18.0); MEAN CELL VOLUME 96 fl (80.0-100.0); MEAN CORPUSCULAR HEMOGLOBIN 32 pg (27.0-31.0); MEAN CORPUSCULAR HGB CONC 34 g/dl (33.0-37.0); MEAN PLATELET VOLUME 8.6 fl (7.4-10.4); PLATELET COUNT 386 K/mm3 (130-400); RED BLOOD COUNT 3.51 M/mm3 (4.20-5.60); REDCELL DISTRIBUTION WIDTH-CV 17.2 % (11.5-14.5)
[2020-11-26 07:15] LABS: CALCIUM 8.8 mg/dL (8.4-10.2); CREATININE, serum 1.08 (0.66-1.25); MAGNESIUM 2.2 mg/dL (1.6-2.3); POTASSIUM 4.4 mmol/L (3.4-5.0)
[2020-11-26 07:25] LABS: HEMATOCRIT 33.6 % (42.0-52.0)
[2020-11-26 07:38] VITALS: BP 126/73; PULSE 83; TEMP 99
[2020-11-26 08:36] LABS: ANISOCYTOSIS 1+; PLATELET ESTIMATE NORMAL (NORMAL)
[2020-11-26 09:32] LABS: BAND 4 % (0-10); EOSINOPHIL 1 % (0-4); LYMPHOCYTE 18 % (20.0-51.0); NEUTROPHILS 66 % (42.0-75.2)
[2020-11-26 09:33] LABS: OVALOCYTES 1+
--- NOTE | 2020-11-26 09:50 | NUR ---
Pt awake upon entry, sitting in the recliner. No C/O pain at this time. Shift assessments complete, left Pt call light in reach.
[2020-11-26 10:48] LABS: CALCIUM 8.9 mg/dL (8.4-10.2); CREATININE, serum 1.1 (0.66-1.25); POTASSIUM 4.3 mmol/L (3.4-5.0)
--- NOTE | 2020-11-26 11:57 | NUR ---
SE met with the patient and his , Kezia (ph#[phone]), to discuss discharge plan. The patient lives in [place] with his . He reports independence with ADLs and does not have any DME. The patient's PCP is Dr. Santos and he receives his medications from [facility] in . He reports no difficulties obtaining his meds. The patient does not have a DPOA-HC and he was not interested in completing one while here. The patient plans to return home with his upon discharge. PT notified SE that she would recommend and thinks that the patient would benefit from outpatient PT. SW discussed this with the patient and his . The patient declined outpatient PT. He states that he is active at home. No additional needs at this time. *Discharge plan: home with *
[2020-11-26 12:19] VITALS: BP 123/73; PULSE 84; TEMP 97.4
[2020-11-26 17:27] VITALS: BP 120/71; PULSE 83; TEMP 99
[2020-11-26 18:21] LABS: CALCIUM 8.3 mg/dL (8.4-10.2); CREATININE, serum 1.07 (0.66-1.25); POTASSIUM 4.5 mmol/L (3.4-5.0)
[2020-11-26 19:11] VITALS: BP 113/66; PULSE 93; TEMP 98.2
--- NOTE | 2020-11-26 20:02 | NUR ---
PT ALERT AND ORIENTED. DENIES PAIN AT THIS TIME. PT AMBULATED TO CHAIR, REFUSED GAIT BELT. TOLERATED ACTIVITY WELL, STATED FEELING WEAK SINCE HOSPITALIZATION. PT DICUSSED PREVIOUS FALLS AND HOSPITALIZATIONS. PT HAS VICENTE IN, CLOUDY URINE WITH SEDIMENT NOTED IN BAG, SLIGHT ODOR NOTED. PT REQUESTED WARM BATHING WIPES FOR INDEPENDENT HYGIENE CARE. BRENNAN HERNADNEZ NOTIFIED OF LOWER SODIUM VALUE FOR 1800 LAB AND REQUEST FOR MELATONIN.
--- NOTE | 2020-11-26 20:13 | NUR ---
PT AMBULATED BACK TO BED, BLOOD NOTED IN VICENTE CATHETER. PT STATES THIS HAS HAPPENED BEFORE AFTER SURGERY, AND THAT HE HAS A KIDNEY STONE. PT STATES THAT HIS DOCTOR IS AWARE AND IS CONCERNED IF THERE IS A NEW ONSET OF PAIN IN THE FLANKS. PT DENIES PAIN AT THIS TIME. CHARGE NURSE NOTIFIED AND ASSESSED URINE. WILL CONTINUE TO MONITOR.
--- NOTE | 2020-11-26 22:48 | NUR ---
BRENNAN HERNANDEZ NOTIFIED TO RETAIN VICENTE CATHETER ORDER.
[2020-11-26 23:37] VITALS: BP 115/73; PULSE 76; TEMP 98.8
[2020-11-27 03:27] VITALS: BP 119/71; PULSE 69; TEMP 98
--- NOTE | 2020-11-27 05:31 | NUR ---
PT'S URINE COLLECTED VIA EXTERNAL CATHETER. PT HAS BLOOD TINGED URINE THROUGHOUT SHIFT. PT REPORTS PROVIDER KNOWS AND HE HAS KIDNEY STONE. PT DENIES FLANK PAIN AT THIS TIME. PT VS REMAINED STABLE THIS SHIFT. PT ABLE TO FREELY CONVERSE AND EXPRESS NEEDS. PT STATES THAT "MELATONIN DIDN'T WORK" TONIGHT, SO HE DIDN'T GET MUCH REST. PT FREE FROM INJURY THIS SHIFT.
--- NOTE | 2020-11-27 06:40 | NUR ---
BRENNAN HERNANDEZ NOTIFIED ABOUT BLOOD TINGED URINE IN CATHETER. NO INTERVENTIONS ORDERED AT THIS TIME, WILL CONTINUE TO MONITOR.
[2020-11-27 07:14] LABS: CALCIUM 8.1 mg/dL (8.4-10.2); CREATININE, serum 0.94 (0.66-1.25)
--- NOTE | 2020-11-27 08:40 | NUR ---
Pt awake upon entry, no C/O pain at this time. talkative and expresses desire to return home. Shift assessment complete, left Pt call light in reach, needs met.
[2020-11-27] MEDS ORDERED: ZOFRAN 4MG T4 MG/TAB PO (08:48)
[2020-11-27] MEDS ORDERED: SODIUM CHLORIDE1 GM PO (08:50)
[2020-11-27 08:51] VITALS: BP 132/72; PULSE 76; TEMP 98.5
--- NOTE | 2020-11-27 11:30 | NUR ---
Pt discharted to home. Discussed discharge information with Pt and spouse. answered questions. Pt escorted to entrance by PCT, Pt left with spouse via private transportation.
== END 2020-11-27 11:32 | disposition home or self-care (01) | DRG 641 ==
LOC: COL.ER 13:14 → MEDICAL 15:23 → ICU 15:23 → MEDICAL 23:45
PROVIDERS: Emergency Medicine; ADMIT Internal Medicine
DX: E87.1 Hypo-osmolality and hyponatremia (principal); E46 Unspecified protein-calorie malnutrition; R55 Syncope and collapse; R31.9 Hematuria, unspecified; F17.200 Nicotine dependence, unspecified, uncomplicated; Z85.51 Personal history of malignant neoplasm of bladder; F17.210 Nicotine dependence, cigarettes, uncomplicated; Z68.21 Body mass index [BMI] 21.0-21.9, adult
CPT/HCPCS: 99223-AI; 99232-AI; 99239; J7030

== ENCOUNTER 2021-01-25 08:36 | Emergency (ER) | payer BC ==
[~2021-01-25] VITALS: Ht 185.4 cm; Wt 86.8 kg
[~2021-01-25 08:36] MED LIST changes: +CLARITIN 1010 MG/TAB; +SODIUM CHLORIDE1 GM PO; +ZOFRAN 4MG T4 MG/TAB PO
[2021-01-25 08:57] VITALS: TEMP 97.9
[2021-01-25 09:27] LABS: BASO % 0.3 % (0.0-2.0); EOS % 0.4 % (0-4.0); GRAN # 8.1 (1.4-6.5); GRAN % 73.9 % (42.2-75.2); HEMATOCRIT 40.7 % (42.0-52.0); HEMOGLOBIN 13.5 g/dl (13.5-18.0); LYMPH # 1.8 (1.2-3.4); LYMPH % 16.5 % (20.0-51.0); MEAN CELL VOLUME 97 fl (80.0-100.0); MEAN CORPUSCULAR HEMOGLOBIN 32 pg (27.0-31.0); MEAN CORPUSCULAR HGB CONC 33 g/dl (33.0-37.0); MEAN PLATELET VOLUME 8.7 fl (7.4-10.4); MONO # 0.9 (0.1-0.6); MONO % 8.5 % (1.7-9.3); PLATELET COUNT 368 K/mm3 (130-400); REDCELL DISTRIBUTION WIDTH-CV 16.8 % (11.5-14.5)
[2021-01-25] MEDS ORDERED: MEGACE 40MG40 MG/TAB PO (09:36)
[2021-01-25 09:39] LABS: ALBUMIN 3.3 gm/dL (3.4-4.8); BILIRUBIN,TOTAL 0.4 mg/dL (0.2-1.2); CALCIUM 9.7 mg/dL (8.4-10.2); CREATININE, serum 1.37 mg/dL (0.72-1.25); POTASSIUM 3.7 mmol/L (3.5-4.5); TOTAL PROTEIN 8.3 gm/dL (6.2-8.1)
[2021-01-25 11:26] LABS: COLLECTION METHOD WEE BAG; PH 6 (5-8); SQUAMOUS EPITHELIAL None Seen /hpf; URINE APPEARANCE Clear; URINE BACTERIA None Seen /hpf; URINE BILIRUBIN Negative (NEGATIVE); URINE BLOOD 1+ (NEGATIVE); URINE COLOR Straw; URINE GLUCOSE Negative (NEGATIVE); URINE KETONE Negative (NEGATIVE); URINE LEUKOCYTE ESTERASE Negative (NEGATIVE); URINE NITRATE Negative (NEGATIVE); URINE PROTEIN(semi-quant) Negative (NEGATIVE); URINE RBC 0-2 /hpf; URINE UROBILINOGEN Negative (NEGATIVE)
[2021-01-25 12:00] VITALS: BP 117/50; PULSE 85
[2021-01-25] MEDS ORDERED: CEPHALEXIN500 M1 PO (12:18)
[2021-01-25] MEDS ORDERED: PERCOCET 325 MG1 TA2 PO (12:18)
[2021-01-25] MEDS ORDERED: ZOFRAN ODT4 MG PO (12:18)
== END 2021-01-25 12:00 | disposition home or self-care (01) ==
LOC: COL.ER 08:36
PROVIDERS: Personal Emergency Response Attendant
DX: R10.32 Left lower quadrant pain (principal); E86.0 Dehydration; N28.9 Disorder of kidney and ureter, unspecified; F17.200 Nicotine dependence, unspecified, uncomplicated; Z85.51 Personal history of malignant neoplasm of bladder; Z90.49 Acquired absence of other specified parts of digestive tract
CPT/HCPCS: J0696; J2270; J2405; J7030; Q9967

== ENCOUNTER → 2021-03-24 | Outpatient (CLI) | payer BC ==
[~2021-03-24] MED LIST changes: +CEPHALEXIN500 M1 PO; +MEGACE 40MG40 MG/TAB PO; +PERCOCET 325 MG1 TA2 PO
== END ==
LOC: COL.RAD 09:03
DX: C67.6 Malignant neoplasm of ureteric orifice (principal); K86.89 Other specified diseases of pancreas; Z90.49 Acquired absence of other specified parts of digestive tract
CPT/HCPCS: A9585

== ENCOUNTER 2021-05-15 07:44 | Day surgery (SDC) | payer MEDICARE, BC ==
[~2021-05-15] VITALS: Ht 185.4 cm; Wt 83.1 kg
[~2021-05-15 07:44] MED LIST changes: -CLARITIN 1010 MG/TAB; +LOPRESSOR 225 MG/TAB PO; +SODIUM BICARBO650 MG PO
[2021-05-15 08:32] VITALS: BP 133/83; PULSE 61; TEMP 97.3
[2021-05-15 10:43] VITALS: TEMP 97
[2021-05-15 10:55] VITALS: BP 113/91; PULSE 103
--- NOTE | 2021-05-15 10:55 | NUR ---
1055 Pt returns from endo procedure via cart and RN assist to GI [facility]. Pt ambulates from cart to recliner with RN assist. Monitors on and alarms set. Call light within reach. Report received from DARLENE Shelley. Pt alert and oriented. Pt requests muffin and coffee. Pt denies any pain or nausea but states he's quite cold. 1110 Pt taking food and drink well. No complications noted. Pt warming up, but desires to get home and warm up and rest in bed. 1150 Discharge instructions given to pt and . All questions answered to their satisfaction. Handed to pt are a thank you card and discharge information. 1153 Pt transferred out of the hospital via wheelchair and DARLENE Keenan assist, to private vehicle driven by .
[2021-05-15 11:00] VITALS: BP 124/93
[2021-05-15 11:15] VITALS: BP 140/78; PULSE 64
[2021-05-15 11:30] VITALS: BP 148/85; PULSE 67
== END 2021-05-15 11:53 | disposition home or self-care (01) ==
LOC: SDCO 07:44
DX: K63.5 Polyp of colon (principal); K21.00 Gastro-esophageal reflux disease with esophagitis, without bleeding; K29.80 Duodenitis without bleeding; K29.71 Gastritis, unspecified, with bleeding; D50.9 Iron deficiency anemia, unspecified; R63.0 Anorexia; K64.0 First degree hemorrhoids; I10 Essential (primary) hypertension; E78.5 Hyperlipidemia, unspecified; J44.9 Chronic obstructive pulmonary disease, unspecified; M19.90 Unspecified osteoarthritis, unspecified site; G47.00 Insomnia, unspecified; E11.9 Type 2 diabetes mellitus without complications; F17.210 Nicotine dependence, cigarettes, uncomplicated; Z92.21 Personal history of antineoplastic chemotherapy; Z85.51 Personal history of malignant neoplasm of bladder; Z90.79 Acquired absence of other genital organ(s); Z79.899 Other long term (current) drug therapy
CPT/HCPCS: J2704; J7030

== ENCOUNTER → 2021-06-26 | Outpatient (CLI) | payer MEDICARE, BC ==
[~2021-06-26] MED LIST changes: +REGLAN 5MG T5 MG/TAB PO
[2021-07-01] VITALS (48 sets, daily range): O2SAT 95–100
== END ==
LOC: COL.RAD 07:19
DX: R11.0 Nausea (principal); D50.9 Iron deficiency anemia, unspecified; C67.9 Malignant neoplasm of bladder, unspecified; R63.0 Anorexia; R63.4 Abnormal weight loss
CPT/HCPCS: A9541

== ENCOUNTER 2021-06-30 16:10 | Inpatient (IN) | payer MEDICARE, BC ==
[2021-06-30] VITALS (117 sets, daily range): BP systolic 132; BP diastolic 75; PULSE 60; TEMP 98.5; O2SAT 97–100
[~2021-06-30] VITALS: Ht 185.4 cm; Wt 82.8 kg
[~2021-06-30 16:10] MED LIST changes: -REGLAN 5MG T5 MG/TAB PO
[2021-06-30 17:24] LABS: BASO % 0.4 % (0.0-2.0); EOS # 0.1 K/mm3 (0.0-0.7); EOS % 1.4 % (0.0-4.0); GRAN # 4.4 K/mm3 (1.4-6.5); HEMATOCRIT 37.1 % (42.0-52.0); HEMOGLOBIN 13.5 g/dl (13.5-18.0); LYMPH # 1.9 K/mm3 (1.2-3.4); LYMPH % 25.6 % (20.0-51.0); MEAN CELL VOLUME 101 fl (80.0-100.0); MEAN CORPUSCULAR HEMOGLOBIN 37 pg (27-31); MEAN CORPUSCULAR HGB CONC 36 g/dl (33.0-37.0); MEAN PLATELET VOLUME 8.6 fl (7.4-10.4); MONO # 0.8 K/mm3 (0.1-0.6); MONO % 10.6 % (1.7-9.3); PLATELET COUNT 245 K/mm3 (130-400); RED BLOOD COUNT 3.67 M/mm3 (4.20-5.60); REDCELL DISTRIBUTION WIDTH-CV 13.2 % (11.5-14.5)
[2021-06-30 17:31] LABS: BILIRUBIN,TOTAL 0.5 mg/dL (0.2-1.2); CALCIUM 8.9 mg/dL (8.4-10.2); CREATININE, serum 1.83 mg/dL (0.72-1.25); POTASSIUM 4.8 mmol/L (3.5-4.5); TOTAL PROTEIN 8.1 gm/dL (6.2-8.1)
[2021-06-30 17:40] LABS: COLLECTION METHOD CLEAN CATCH
[2021-06-30 17:53] LABS: PH 7 (5-8); SQUAMOUS EPITHELIAL None Seen /hpf (0-10); URINE APPEARANCE Clear (CLEAR/HAZY); URINE BACTERIA None Seen /hpf (NONE SEEN); URINE BILIRUBIN Negative (NEGATIVE); URINE BLOOD 1+ (NEGATIVE); URINE COLOR Yellow (YELLOW); URINE GLUCOSE Negative (NEGATIVE); URINE KETONE Negative (NEGATIVE); URINE LEUKOCYTE ESTERASE Negative (NEGATIVE); URINE NITRATE Negative (NEGATIVE); URINE PROTEIN(semi-quant) Negative (NEGATIVE); URINE RBC 0-2 /hpf (0-2); URINE UROBILINOGEN Negative (NEGATIVE)
[2021-07-01] VITALS (598 sets, daily range): BP systolic 96–120; BP diastolic 57–83; PULSE 60–78; TEMP 97.5–98.3; O2SAT 64–100
[2021-07-01 00:46] LABS: CALCIUM 7.9 mg/dL (8.4-10.2); CREATININE, serum 1.57 mg/dL (0.72-1.25); POTASSIUM 4.6 mmol/L (3.5-4.5)
--- NOTE | 2021-07-01 01:15 | NUR ---
0115 REPORT RECIEVED FROM DARLENE MILLER AT THIS TIME ASSUMED CARE OF THIS PATIENT
--- NOTE | 2021-07-01 04:56 | NUR ---
PATIENT REQUESTED AND PROVIDED WITH 2 PUDDING CUPS EARLIER THIS SHIFT ALSO NOTED THAT ALONG WITH CONSUMING PUDDING CUPS PATIENT CONSUMED SANDWICH BOX WITH EXCEPTION OF APPLESAUCE. THIS NURSE HAD PREVIOUS INTERACTION WITH PATIENT IN ER AND NOTED THERE THAT PATIENT HAD ONLY CONSUMED A COUPLE OF BITES OF SANDWICH FROM [employer] AND A FRUIT CUP ALONG WITH A COUPLE OF SIPS FROM [employer] PROVIDED TO HIM. CURRENTLY RESTING QUIETLY IN BED WITH NO COMPLAINTS
[2021-07-01 05:44] LABS: BASO % 0.8 % (0.0-2.0); EOS # 0.1 K/mm3 (0.0-0.7); EOS % 1.5 % (0.0-4.0); GRAN # 3.2 K/mm3 (1.4-6.5); GRAN % 59.5 % (42.2-75.2); HEMOGLOBIN 11.9 g/dl (13.5-18.0); LYMPH # 1.3 K/mm3 (1.2-3.4); LYMPH % 24.3 % (20.0-51.0); MEAN CELL VOLUME 104 fl (80.0-100.0); MEAN CORPUSCULAR HEMOGLOBIN 37 pg (27-31); MEAN CORPUSCULAR HGB CONC 35 g/dl (33.0-37.0); MEAN PLATELET VOLUME 8.7 fl (7.4-10.4); MONO # 0.7 K/mm3 (0.1-0.6); MONO % 12.8 % (1.7-9.3); PLATELET COUNT 191 K/mm3 (130-400); RED BLOOD COUNT 3.25 M/mm3 (4.20-5.60); REDCELL DISTRIBUTION WIDTH-CV 13.5 % (11.5-14.5)
[2021-07-01 05:59] LABS: CALCIUM 7.9 mg/dL (8.4-10.2); CREATININE, serum 1.57 mg/dL (0.72-1.25); POTASSIUM 4.5 mmol/L (3.5-4.5)
[2021-07-01 06:01] LABS: HEMATOCRIT 33.8 % (42.0-52.0)
[2021-07-01 07:13] LABS: ARTERIAL BLD GAS O2 SATURATION 96.8 % (92-100); ARTERIAL BLD GAS TCO2 CT 12.3; ARTERIAL BLOOD GAS BASE EXCESS -13.2 (-2-2); ARTERIAL BLOOD GAS HCO3 11.5 meq/L (22-26); ARTERIAL BLOOD GAS PCO2 24.5 mmHg (35-45); ARTERIAL BLOOD GAS PO2 88.7 mmHg (80-100); ARTERIAL BLOOD GAS pH 7.29 (7.35-7.45)
--- NOTE | 2021-07-01 09:37 | NUR ---
Toll Line Inspector Eunice and SW student met with patient to discuss discharge planning. Patient lives in [place] with his , Kezia(ph#[phone]). Patient sees Dr. Santos for primary care, and patient utilizes [facility] in [place] to receive medications. Patient reports he has not problems affording those medications. Patient states he has used a cane. Patient states that he has some trouble with the steps in his home, but he "handles" them. There is a step up to the front porch outside and a step to get in the door. He states there is another step to get to the kitchen inside, but he "has no problem with that one." Patient does not utilize any oxygen at home, and he is independent with his ADL's. Regarding a DPOA-HC, patient states, "I think we have done that before, but the would know about that stuff." Discharge plan: Home with his
--- NOTE | 2021-07-01 10:07 | NUR ---
SE student followed up with patient's , Kezia, to secure a DPOA-HC. Patient's stated that the only documents they have are for a Living Will. SE student tried to establish next of kin for the patient. The patient is legally to Kezia. Patient's reported that the patient has a son and she has a son, but they did not have children together. Patient's was not willing to give the patient's son's information due to his son "Wanting to take every little thing we have" and that they "have a bad relationship." SE student educated the patient's on the importance of filling out a DPOA-HC at somepoint to ensure that he has appointed the correct agents. Patient's verbalized understanding.
[2021-07-01 12:19] LABS: CALCIUM 7.9 mg/dL (8.4-10.2); CREATININE, serum 1.55 mg/dL (0.72-1.25); POTASSIUM 3.9 mmol/L (3.5-4.5)
--- NOTE | 2021-07-01 19:20 | NUR ---
RECEIVED REPORT FROM DARLENE LÓPEZ. PT RESTING IN BED ON RA. VSS. CALL LIGHT AND URINAL WITHIN REACH.
[2021-07-01 20:20] LABS: CALCIUM 8.1 mg/dL (8.4-10.2); CREATININE, serum 1.51 mg/dL (0.72-1.25); POTASSIUM 4.3 mmol/L (3.5-4.5)
[2021-07-02] VITALS (245 sets, daily range): BP systolic 100–128; BP diastolic 63–75; PULSE 59–68; TEMP 97.4–98.7; O2SAT 82–100
--- NOTE | 2021-07-02 01:00 | NUR ---
PT GETS UP TO USE THE RESTROOM. UPON RETURNING TO BED NOTED LAC BLEEDING. THE BP CUFF HAD CREATED A SKIN TEAR ABOUT A NICKEL IN SIZE. XEROFORM, 4X4, AND GAUZE WRAP DRESSING IN PLACE AT THIS TIME.
[2021-07-02 06:00] LABS: BASO # 0.1 K/mm3 (0.0-0.2); BASO % 1.3 % (0.0-2.0); EOS # 0.1 K/mm3 (0.0-0.7); EOS % 1.9 % (0.0-4.0); GRAN # 2.7 K/mm3 (1.4-6.5); GRAN % 56.4 % (42.2-75.2); LYMPH # 1.3 K/mm3 (1.2-3.4); LYMPH % 27.1 % (20.0-51.0); MEAN CELL VOLUME 104 fl (80.0-100.0); MEAN CORPUSCULAR HEMOGLOBIN 37 pg (27-31); MEAN CORPUSCULAR HGB CONC 35 g/dl (33.0-37.0); MEAN PLATELET VOLUME 8.8 fl (7.4-10.4); MONO # 0.6 K/mm3 (0.1-0.6); MONO % 12.7 % (1.7-9.3); PLATELET COUNT 210 K/mm3 (130-400); RED BLOOD COUNT 2.98 M/mm3 (4.20-5.60); REDCELL DISTRIBUTION WIDTH-CV 13.5 % (11.5-14.5)
[2021-07-02 06:04] LABS: HEMATOCRIT 31.1 % (42.0-52.0)
[2021-07-02 06:11] LABS: CALCIUM 8.1 mg/dL (8.4-10.2); CREATININE, serum 1.46 mg/dL (0.72-1.25); MAGNESIUM 2.1 mg/dL (1.6-2.6); POTASSIUM 4.1 mmol/L (3.5-4.5)
--- NOTE | 2021-07-02 08:00 | NUR ---
Resumed care of PT. All lines, tubes, pumps checked and verified. PT is awake and independent in the room. VSS
--- NOTE | 2021-07-02 11:05 | NUR ---
Initial visit; Patient "David", thanked Tax Compliance Representative for looking in on him. David has been a patient with our hospital before and states always how much he appreciates all the good care he receives here. He is doing well and was receptive to having Tax Compliance Representative offer blessings for him and wish him good health!
--- NOTE | 2021-07-02 15:01 | NUR ---
Report called to Medical RN. PT transported via wheelchair.
[2021-07-02 15:53] LABS: CALCIUM 8.5 mg/dL (8.4-10.2); CREATININE, serum 1.54 mg/dL (0.72-1.25); POTASSIUM 4.1 mmol/L (3.5-4.5)
--- NOTE | 2021-07-02 20:30 | NUR ---
Initial shift assessment done- denies pain,no SOB, no requests, states is going home tomorrow- has another sodium blood test at 2100 tonight- Up ad khoa- steady on feet
[2021-07-02 21:36] LABS: CALCIUM 8.2 mg/dL (8.4-10.2); CREATININE, serum 1.45 mg/dL (0.72-1.25); POTASSIUM 4.1 mmol/L (3.5-4.5)
--- NOTE | 2021-07-02 22:15 | NUR ---
Thuy OLSON notified of BMP results- no changes at this time
[2021-07-03 00:21] VITALS: BP 96/57; PULSE 68; TEMP 97.3
[2021-07-03 04:32] VITALS: BP 115/66; PULSE 59; TEMP 97.9
--- NOTE | 2021-07-03 05:32 | NUR ---
Quiet night-- IV fluids of NS at 75cc/hr, will have another BMP drawn this morning.
--- NOTE | 2021-07-03 06:04 | NUR ---
Awake, sitting in chair in room, states he is getting upset with the IV fluids,, not happy that they were restarted last night{they were never dc,d yesterday but were off by the afternoon}, when Thuy OLSON was called with the BMP results she said to restart them since the fluids were never dc,d. Patient states that the Nurse practitioner yesterday said he didnt need the IV fluids anymore. Will just stop the IV fluids per pt refusing them -pt states hes going home right away this morning.
[2021-07-03 06:39] LABS: BASO # 0.1 K/mm3 (0.0-0.2); BASO % 0.8 % (0.0-2.0); EOS # 0.1 K/mm3 (0.0-0.7); EOS % 2.2 % (0.0-4.0); GRAN # 3.3 K/mm3 (1.4-6.5); GRAN % 55.4 % (42.2-75.2); HEMOGLOBIN 11.4 g/dl (13.5-18.0); LYMPH # 1.7 K/mm3 (1.2-3.4); LYMPH % 28.6 % (20.0-51.0); MEAN CELL VOLUME 106 fl (80.0-100.0); MEAN CORPUSCULAR HEMOGLOBIN 37 pg (27-31); MEAN CORPUSCULAR HGB CONC 35 g/dl (33.0-37.0); MEAN PLATELET VOLUME 8.6 fl (7.4-10.4); MONO # 0.8 K/mm3 (0.1-0.6); MONO % 12.7 % (1.7-9.3); PLATELET COUNT 219 K/mm3 (130-400); RED BLOOD COUNT 3.07 M/mm3 (4.20-5.60)
[2021-07-03 06:46] LABS: HEMATOCRIT 32.5 % (42.0-52.0)
[2021-07-03 06:59] LABS: CREATININE, serum 1.49 mg/dL (0.72-1.25); POTASSIUM 4.2 mmol/L (3.5-4.5)
--- NOTE | 2021-07-03 07:04 | NUR ---
Patient walking around in the room, is ready to go home today. A&Ox4. VSS. IV CDI. Indpendent in the room. Denies pain and discomfort. No further needs expressed. Call light within reach
[2021-07-03 08:36] VITALS: BP 115/66; PULSE 59; TEMP 98.5
--- NOTE | 2021-07-03 08:41 | NUR ---
Patient is walking in the hallway with no assistance, he is alert and oriented and is ready to go home. Assessment and Medicine obtained and vital signs WNL. call light in place and patinet is resting comfortable in room. Will continue to monitor patient throughout shift.
--- NOTE | 2021-07-03 08:58 | NUR ---
Agree with student nurses assessment of the patient
[2021-07-03] MEDS ORDERED: SODIUM BICARBO650 MG PO (09:50)
[2021-07-03] MEDS ORDERED: REGLAN 5MG T5 MG/TAB PO (09:51)
--- NOTE | 2021-07-03 10:23 | NUR ---
Discharge paperwork reveiwed with the patient and patient verbalized an understanding to follow doctors orders. IV removed by the sutdent, tip intact. Patient ambulated independently to patient entrance to awaiting ride. Personal belongings and discharge paperwork with the patient
--- NOTE | 2021-07-03 12:43 | NUR ---
Primary nurse was assisted with [id number] patient care by [employer] student Irina Iniguez and [employer] instructor Carmelina Castillo MSN, RN
== END 2021-07-03 10:25 | disposition home or self-care (01) | DRG 641 ==
LOC: COL.ER 16:10 → ICU 18:10 → MEDICAL 07-02 17:14
PROVIDERS: Internal Medicine Critical Care Medicine; Nurse Practitioner; Physician Assistant; Student in an Organized Health Care Education/Training Program; ADMIT Internal Medicine
DX: E87.1 Hypo-osmolality and hyponatremia (principal); N17.9 Acute kidney failure, unspecified; E46 Unspecified protein-calorie malnutrition; I10 Essential (primary) hypertension; F17.210 Nicotine dependence, cigarettes, uncomplicated; E87.2 Acidosis; K31.84 Gastroparesis; R91.8 Other nonspecific abnormal finding of lung field; Z68.23 Body mass index [BMI] 23.0-23.9, adult; Z23 Encounter for immunization; Z85.46 Personal history of malignant neoplasm of prostate; Z85.51 Personal history of malignant neoplasm of bladder
CPT/HCPCS: 99223-AI; 99233-AI; 99239; J1644; J7030

== ENCOUNTER 2021-07-13 23:43 | Emergency (ER) | payer MEDICARE, BC ==
[~2021-07-13] VITALS: Ht 185.4 cm; Wt 82.3 kg
[~2021-07-13 23:43] MED LIST changes: +REGLAN 5MG T5 MG/TAB PO
[2021-07-13 23:52] VITALS: TEMP 96.5
[2021-07-14 00:18] LABS: BASO % 0.7 % (0.0-2.0); EOS # 0.2 K/mm3 (0.0-0.7); EOS % 2.5 % (0.0-4.0); GRAN % 49.7 % (42.2-75.2); HEMOGLOBIN 11.2 g/dl (13.5-18.0); LYMPH # 2.1 K/mm3 (1.2-3.4); LYMPH % 34.1 % (20.0-51.0); MEAN CELL VOLUME 107 fl (80.0-100.0); MEAN CORPUSCULAR HEMOGLOBIN 37 pg (27-31); MEAN CORPUSCULAR HGB CONC 35 g/dl (33.0-37.0); MEAN PLATELET VOLUME 8.6 fl (7.4-10.4); MONO # 0.8 K/mm3 (0.1-0.6); MONO % 12.5 % (1.7-9.3); PLATELET COUNT 266 K/mm3 (130-400); RED BLOOD COUNT 3.03 M/mm3 (4.20-5.60); REDCELL DISTRIBUTION WIDTH-CV 14.1 % (11.5-14.5)
[2021-07-14 00:19] LABS: HEMATOCRIT 32.3 % (42.0-52.0)
[2021-07-14 00:35] LABS: ALANINE AMINOTRANSFERASE 17 U/L (0-55); ALBUMIN 3.3 gm/dL (3.4-4.8); ALKALINE PHOSPHATASE 42 U/L (40-150); ANION GAP 14 mmol/L (7-16); AST,SGOT 24 U/L (5-34); BILIRUBIN,TOTAL 0.2 mg/dL (0.2-1.2); BLOOD UREA NITROGEN 22 mg/dL (8-26); CALCIUM 8.7 mg/dL (8.4-10.2); CARBON DIOXIDE 17 mmol/L (23-31); CHLORIDE 102 mmol/L (98-107); CREATININE, serum 1.37 mg/dL (0.72-1.25); GLUCOSE 90 mg/dL (70-99); SODIUM 133 mmol/L (136-145); TOTAL PROTEIN 6.9 gm/dL (6.2-8.1)
[2021-07-14 00:42] LABS: ARTERIAL BLD GAS O2 SATURATION 93.8 % (92-100); ARTERIAL BLD GAS TCO2 CT 21.4; ARTERIAL BLOOD GAS BASE EXCESS -4.8 (-2-2); ARTERIAL BLOOD GAS HCO3 20.2 meq/L (22-26); ARTERIAL BLOOD GAS PCO2 37.4 mmHg (35-45); ARTERIAL BLOOD GAS PO2 73.3 mmHg (80-100); ARTERIAL BLOOD GAS pH 7.35 (7.35-7.45)
[2021-07-14 00:42] LABS: TROPONIN-I < 0.010 ng/mL (0.00-0.033)
[2021-07-14] MEDS ORDERED: AUGMENTIN XR 101 TER PO (01:08)
[2021-07-14] MEDS ORDERED: ZITHROMAX Z PA250 MG PO (01:08)
[2021-07-14 01:18] VITALS: BP 127/81; PULSE 78
== END 2021-07-14 01:18 | disposition home or self-care (01) ==
LOC: COL.ER 23:43
PROVIDERS: Emergency Medicine
DX: J18.9 Pneumonia, unspecified organism (principal); F17.210 Nicotine dependence, cigarettes, uncomplicated; Z20.822 Contact with and (suspected) exposure to COVID-19

== ENCOUNTER 2022-10-05 15:31 | Emergency (ER) | payer MEDICARE, BC ==
[~2022-10-05] VITALS: Ht 185.4 cm; Wt 80.0 kg
[~2022-10-05 15:31] MED LIST changes: +AUGMENTIN XR 101 TER PO; +ZITHROMAX Z PA250 MG PO
[2022-10-05 15:38] VITALS: TEMP 97.3
[2022-10-05 15:59] LABS: BASO % 0.3 % (0.0-2.0); EOS # 0.2 K/mm3 (0.0-0.7); GRAN # 4.1 K/mm3 (1.4-6.5); GRAN % 61.5 % (42.2-75.2); HEMATOCRIT 38.4 % (42.0-52.0); HEMOGLOBIN 13.3 g/dl (13.5-18.0); LYMPH # 1.6 K/mm3 (1.2-3.4); MEAN CELL VOLUME 99 fl (80.0-100.0); MEAN CORPUSCULAR HEMOGLOBIN 34 pg (27-31); MEAN CORPUSCULAR HGB CONC 35 g/dl (33.0-37.0); MEAN PLATELET VOLUME 8.5 fl (7.4-10.4); MONO # 0.8 K/mm3 (0.1-0.6); MONO % 11.1 % (1.7-9.3); PLATELET COUNT 215 K/mm3 (130-400)
[2022-10-05 16:18] LABS: ALANINE AMINOTRANSFERASE 13 U/L (0-55); ALBUMIN 4.1 gm/dL (3.4-4.8); ALKALINE PHOSPHATASE 46 U/L (40-150); ANION GAP 11 mmol/L (7-16); AST,SGOT 19 U/L (5-34); BILIRUBIN,TOTAL 0.4 mg/dL (0.2-1.2); BLOOD UREA NITROGEN 16 mg/dL (8-26); CALCIUM 9.2 mg/dL (8.4-10.2); CHLORIDE 99 mmol/L (98-107); CREATININE, serum 1.32 mg/dL (0.72-1.25); GLUCOSE 90 mg/dL (70-99); POTASSIUM 4.5 mmol/L (3.5-4.5); SODIUM 125 mmol/L (136-145); TOTAL PROTEIN 7.9 gm/dL (6.2-8.1)
[2022-10-05] MEDS ORDERED: PRINIVIL2.5 MG PO (16:22)
[2022-10-05] MEDS ORDERED: JARDIANCE10 PO (16:23)
[2022-10-05 16:24] LABS: TROPONIN-I < 0.010 ng/mL (0.00-0.033)
[2022-10-05] MEDS ORDERED: SODIUM BICARBO650 MG PO (16:24)
[2022-10-05] MEDS ORDERED: REGLAN 5MG T5 MG/TAB PO (16:25)
[2022-10-05] MEDS ORDERED: COLACE 100100 MG/CAP PO (16:26)
[2022-10-05] MEDS ORDERED: NS 1,000 ML IV ONE (16:30)
[2022-10-05 17:28] VITALS: BP 137/77; PULSE 72
[2022-11-01] MEDS ORDERED: TOPROL XL 25MG25 MG PO (14:16)
[2023-06-12] MEDS ORDERED: CALCITRIOL PO (15:36)
[2023-06-12] MEDS ORDERED: OSCAL 500 TAB500 MG PO (15:37)
[2023-06-12] MEDS ORDERED: LOPRESSOR 225 MG/TAB PO (17:58)
[2023-06-12] MEDS ORDERED: NORCO 325 MG-51 TAB PO (17:59)
[2023-06-13] MEDS ORDERED: [UNRECOGNIZED DRUG - OTHER] (07:46)
[2023-06-13] MEDS ORDERED: XGEVA120 MG/1.7 SQ (07:47)
[2023-06-13] MEDS ORDERED: AMOXICILLIN 8751 TAB PO (13:10)
== END 2022-10-05 17:30 | disposition home or self-care (01) ==
LOC: COL.ER 15:31
PROVIDERS: Nurse Practitioner Primary Care
DX: E87.1 Hypo-osmolality and hyponatremia (principal); F17.200 Nicotine dependence, unspecified, uncomplicated
CPT/HCPCS: J7030